=== PATIENT | male | born 1960 | race Caucasian/White ===

== ENCOUNTER 2018-07-30 00:53 | Emergency (ER) | payer BC ==
--- NOTE | 2018-07-30 01:38 | ERPHSYRPT ---
- History of Present Illness Time Seen by Provider: 07/30/18 01:33 Source: patient, family Exam Limitations: no limitations Patient Subjective Stated Complaint: pt spouse reports that as pt was sleeping this evening he began twitching and had trouble breathing. she states that she checked his pulse ox at home and it was 84% at one point during his episode. 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 spouse reports that pt was dx with pneumonia last week and has been taking this week off of his treatments to get rest. spouse reports he finished his course of levaquin today. pt denies pain at this time. Triage Nursing Assessment: pt is aox3, pupils perrl, afebrile, pt appears in no distress upon arrival, resps easy and non labored, intermittent productive cough noted on exam with thick clear secretions noted, redness and areas of scabbing and peeling skin noted to the throat, no drainage or odor noted, radial pulses strong and equal, bilat, cap refill < 3 seconds, no edema appreciated. port noted to the left upper chest, feeding tube in place to the mid abdomen, no redness or drainge noted at this time. 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 Timing/Duration: today Activities at Onset: sleep Severity of Dyspnea-Max: moderate Severity of Dyspnea-Current: moderate Possible Cause: no prior episodes Modifying Factors: Improves With: lying down Allergies/Adverse Reactions: folic acid [From Centrum Silver] Allergy (Verified 10/04/14 10:14) lutein [From Centrum Silver] Allergy (Verified 10/04/14 10:14) lycopene [From Centrum Silver] Allergy (Verified 10/04/14 10:14) multivitamin with minerals [From Centrum Silver] Allergy (Verified 10/04/14 10: 14) rosuvastatin calcium [From Crestor] Allergy (Verified 10/04/14 10:14) Home Medications: ALPRAZolam [Xanax 0.5 mg] 1 tab BID PRN 10/03/14 [History] Ascorbic Acid 500 mg [Vitamin C 500 MG] 1,000 mg PO DAILY 10/03/14 [ History] Citalopram Hydrobromide 20 mg* [ceLEXa 20 MG] 10 mg DAILY 10/03/14 [History] Clonidine HCl 0.1 mg [Catapres 0.1 MG] 0.1 mg PO BID 10/03/14 [History] Diclofenac Sodium/Misoprostol [Arthrotec 50 mg-200 Mcg Tab] 1 each PO TID [History] Mentor-3 Fatty Acids [Fish Oil] 300 mg PO DAILY 10/03/14 [History] Ramipril [Altace] 10 mg PO DAILY 10/03/14 [History] Vitamin B Complex [Super B Complex] 1 each PO DAILY 10/03/14 [History] Hx Tetanus, Diphtheria Vaccination/Date Given: (unk) Hx Influenza Vaccination/Date Given: Yes Hx Pneumococcal Vaccination/Date Given: No Immunizations Up to Date: Yes - Review of Systems Constitutional: No Fever, No Chills Eyes: No Symptoms Ears, Nose, & Throat: No Symptoms Respiratory: Dyspnea, No Cough Cardiac: No Chest Pain, No Edema, No Syncope Abdominal/Gastrointestinal: No Abdominal Pain, No Nausea, No Vomiting, No Diarrhea Genitourinary Symptoms: No Dysuria Musculoskeletal: No Back Pain, No Neck Pain Skin: No Rash Neurological: No Dizziness, No Focal Weakness, No Sensory Changes Psychological: No Symptoms Endocrine: No Symptoms All Other Systems: Reviewed and Negative - Past Medical History Neurological History: No Pertinent History ENT History: Glaucoma, Macular Degeneration Cardiac History: Hypertension Respiratory History: COPD, Sleep Apnea Musculoskeletal History: Arthritis, Osteoarthritis GI Medical History: Diverticulosis, Hernia History: No Pertinent History Psycho-Social History: Anxiety Male Reproductive Disorders: No Pertinent History Other Medical History: sinus issues, (hole in sinus). 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 right lung- middle lobe resected 2018. feeding tube may 2018. power port left chest - Social History Smoking Status: Former smoker How long have you smoked: 30 Drug Use: none Patient Lives Alone: No - Nursing Vital Signs Nursing Vital Signs: Initial Vital Signs Temperature 98.3 F 07/30/18 00:57 Pulse Rate 73 07/30/18 00:57 Respiratory Rate 22 07/30/18 00:57 Blood Pressure 125/52 07/30/18 00:57 O2 Sat by Pulse Oximetry 96 07/30/18 00:57 Pain Scale Pain Intensity 0 - Physical Exam General Appearance: no apparent distress, alert Eye Exam: PERRL/EOMI Ears, Nose, Throat Exam: pharyngeal erythema Neck Exam: normal inspection, supple Respiratory Exam: airway intact, rhonchi Cardiovascular/Chest Exam: normal heart sounds, regular rate/rhythm Abdominal/Gastrointestinal Exam: soft, No tenderness, No distention, No mass Extremity Exam: non-tender, normal range of motion, normal inspection, no calf tenderness, no pedal edema Peripheral Pulses Exam: carotid (R): 2+, carotid (L): 2+, femoral (R): 2+, femoral (L): 2+, dorsalis-pedis (R): 2+, dorsalis-pedis (L): 2+ Neurologic Exam: alert, oriented x 3, cooperative, 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 as tested, sensation nml, No motor deficits Skin Exam: normal color, warm, No dry SpO2 Interpretation: normal SpO2: 96 O2 Delivery: Room Air - Course Nursing assessment & vital signs reviewed: Yes EKG Interpreted by Me: Sinus Rhythm, NORMAL AXIS, LAFB, NORMAL INTERVALS, Non- specific ST Changes - Radiology Exams Chest X-ray Interpretation: Reviewed by me, Infiltrates - CT Exams Chest CT Interpretation: Tele-radiologist Report, No PE Ordered Tests: Active Orders 24 hr Category Date Time Status Clean Catch Urine Specimen STAT Care 07/30/18 01:38 Active EKG-ER Only STAT Care 07/30/18 01:38 Active CHEST 2 VIEWS (PA AND LAT) Stat Exams 07/30/18 01:41 Taken CHEST WITH CONTRAST [CT] Stat Exams 07/30/18 03:06 Taken CBC W DIFF Stat Lab 07/30/18 02:05 Completed CMP Stat Lab 07/30/18 02:05 Completed D-DIMER QUANTITATION Stat Lab 07/30/18 02:05 Completed Lactic Acid Stat Lab 07/30/18 02:06 Completed NT PRO BNP Stat Lab 07/30/18 02:05 Completed TROPONIN Stat Lab 07/30/18 02:05 Completed UA W/RFX UR CULTURE Stat Lab 07/30/18 04:39 Ordered Lab/Rad Data: Laboratory Result Diagrams 07/30/18 02:05 07/30/18 02:05 Laboratory Results 07/30/18 07/30/18 07/30/18 Range/Units 02:06 02:05 02:05 WBC (4.0-10.5) K/mm3 RBC (4.1-5.6) M/mm3 Hgb (12.5-18.0) gm/dl Hct (42-50) % MCV (78-100) fl MCH (26-32) pg MCHC (32-36) g/dl RDW (11.5-14.0) % Plt Count (150-450) K/mm3 MPV (6-9.5) fl Gran % (36.0-66.0) % Eos # (Auto) (0-0.5) Absolute Lymphs (auto) (1.0-4.6) Absolute Monos (auto) (0.0-1.3) Lymphocytes % (24.0-44.0) % Monocytes % (0.0-12.0) % Eosinophils % (0.00-5.0) % Basophils % (0.0-0.4) % Absolute Granulocytes (1.4-6.9) Basophils # (0-0.4) D-Dimer 1035 H* (215-500) ng/mL Sodium (137-145) mmol/L Potassium (3.5-5.1) mmol/L Chloride (98-107) mmol/L Carbon Dioxide (22-30) mmol/L Anion Gap (5-15) MEQ/L BUN (9-20) mg/dL Creatinine (0.66-1.25) mg/dL Estimated GFR ML/MIN Glucose (74-106) mg/dL Lactic Acid 0.9 (0.4-2.0) Calcium (8.4-10.2) mg/dL Total Bilirubin (0.2-1.3) mg/dL AST (17-59) U/L ALT (0-50) U/L Alkaline Phosphatase (38-126) U/L Troponin I (0.000-0.034) ng/mL NT-Pro-B Natriuret Pep (0-900) pg/mL Serum Total Protein (6.3-8.2) g/dL Albumin (3.5-5.0) g/dL Influenza Type A Ag NEGATIVE (NEGATIVE) Influenza Type B Ag NEGATIVE (NEGATIVE) RSV (PCR) NEGATIVE (Negative) Group A Strep Antibody NEGATIVE (NEGATIVE) Slides for Path Review 07/30/18 07/30/18 Range/Units 02:05 02:05 WBC 3.2 L (4.0-10.5) K/mm3 RBC 3.22 L (4.1-5.6) M/mm3 Hgb 10.8 L (12.5-18.0) gm/dl Hct 32.6 L (42-50) % MCV 101.2 H (78-100) fl MCH 33.5 H (26-32) pg MCHC 33.1 (32-36) g/dl RDW 14.0 (11.5-14.0) % Plt Count 382 (150-450) K/mm3 MPV 9.0 (6-9.5) fl Gran % 58.3 (36.0-66.0) % Eos # (Auto) 0.06 (0-0.5) Absolute Lymphs (auto) 0.43 L (1.0-4.6) Absolute Monos (auto) 0.82 (0.0-1.3) Lymphocytes % 13.5 L (24.0-44.0) % Monocytes % 25.7 H (0.0-12.0) % Eosinophils % 1.9 (0.00-5.0) % Basophils % 0.6 (0.0-0.4) % Absolute Granulocytes 1.86 (1.4-6.9) Basophils # 0.02 (0-0.4) D-Dimer (215-500) ng/mL Sodium 132 L (137-145) mmol/L Potassium 4.4 (3.5-5.1) mmol/L Chloride 92 L (98-107) mmol/L Carbon Dioxide 32 H (22-30) mmol/L Anion Gap 12.3 (5-15) MEQ/L BUN 17 (9-20) mg/dL Creatinine 0.52 L (0.66-1.25) mg/dL Estimated GFR > 60.0 ML/MIN Glucose 114 H (74-106) mg/dL Lactic Acid (0.4-2.0) Calcium 9.1 (8.4-10.2) mg/dL Total Bilirubin 0.20 (0.2-1.3) mg/dL AST 25 (17-59) U/L ALT 39 (0-50) U/L Alkaline Phosphatase 73 (38-126) U/L Troponin I < 0.012 (0.000-0.034) ng/mL NT-Pro-B Natriuret Pep 54.5 (0-900) pg/mL Serum Total Protein 7.3 (6.3-8.2) g/dL Albumin 3.3 L (3.5-5.0) g/dL Influenza Type A Ag (NEGATIVE) Influenza Type B Ag (NEGATIVE) RSV (PCR) (Negative) Group A Strep Antibody (NEGATIVE) Slides for Path Review YES - Progress Progress: improved, re-examined Air Movement: good Progress Note: 07/30/18 05:10 discussed results with pt and and that undetected pathology could still be present and that a precise cause has not been determined for the symptoms; the pt and prefer DC with outpt f/u to furhter eval in ER or admission to observe for any furhter episodes, they have the capacity to make this choice and this is reasonable as there were none during obs while pt was sleeping in er tonight. Blood Culture(s) Obtained: No Antibiotics given: No Counseled pt/family regarding: lab results, diagnosis, need for follow-up, rad results - Departure Departure Disposition: Home Clinical Impression: Supra glottic cancer , Sleep apnea in adult, resolved episode of uper airway mucous Condition: Good Critical Care Time: No Referrals: ROMY LOPEZ MD [Primary Care Provider] - Additional Instructions: followup with your Drs as planned and return if further episodes or concerns occur.
[2018-07-30 02:06] LABS: BASOPHIL % 0.6 % (0.0-0.4); Basophil (Absolute #) 0.02 (0-0.4); Eosinophil % 1.9 % (0.00-5.0); Eosinophil (Absolute #) 0.06 (0-0.5); Granulocyte Absolute (ANC) 1.86 (1.4-6.9); Granulocytes % 58.3 % (36.0-66.0); Hematocrit 32.6 % (42-50); Hemoglobin 10.8 gm/dl (12.5-18.0); Lymphocyte (Absolute #) 0.43 (1.0-4.6); Lymphocytes % 13.5 % (24.0-44.0); Mean Cell Volume 101.2 fl (78-100); Mean Corpuscular Hemoglobin 33.5 pg (26-32); Mean Corpuscular Hgb Concent. 33.1 g/dl (32-36); Monocyte (Absolute #) 0.82 (0.0-1.3); Monocytes % 25.7 % (0.0-12.0); Platelet Count 382 K/mm3 (150-450); Red Blood Count 3.22 M/mm3 (4.1-5.6); White Blood Count 3.2 K/mm3 (4.0-10.5)
[2018-07-30 02:35] LABS: ALBUMIN 3.3 g/dL (3.5-5.0); ALKALINE PHOSPHATASE 73 U/L (38-126); ANION GAP 12.3 MEQ/L (5-15); BLOOD UREA NITROGEN 17 mg/dL (9-20); CHLORIDE 92 mmol/L (98-107); Calcium 9.1 mg/dL (8.4-10.2); Carbon Dioxide 32 mmol/L (22-30); Creatinine 1 0.52 mg/dL (0.66-1.25); Glucose 114 mg/dL (74-106); NT PRO BNP 54.5 pg/mL (0-900); Potassium 4.4 mmol/L (3.5-5.1); SGOT/AST 25 U/L (17-59); SGPT/ALT 39 U/L (0-50); SODIUM 132 mmol/L (137-145); TROPONIN < 0.012 ng/mL (0.000-0.034); Total Protein 7.3 g/dL (6.3-8.2)
[2018-07-30 03:04] LABS: Group A Strep NEGATIVE (NEGATIVE); INFLUENZA A NEGATIVE (NEGATIVE)
[2018-07-30 03:05] LABS: INFLUENZA B NEGATIVE (NEGATIVE); RESPIRATORY SYNCTIAL VIRUS NEGATIVE (Negative)
[2018-07-30 03:41] LABS: Slide Review 1 YES
[2018-07-30 05:17] LABS: Appearance CLEAR (CLEAR); Bilirubin NEGATIVE (NEGATIVE); Blood NEGATIVE Ery/ul (0-5); Glucose NEGATIVE (NEGATIVE); Ketones NEGATIVE (NEGATIVE); Leukocyte Esterase NEGATIVE (NEGATIVE); Nitrite NEGATIVE (NEGATIVE); Protein,Urine Dip NEGATIVE (Negative); Specific Gravity 1.038 (1.005-1.025); Urobilinogen NEGATIVE mg/dL (0-1)
[2018-07-30 05:34] VITALS: BP 106/68; PULSE 78; O2SAT 95
--- NOTE | 2018-07-30 10:00 | XRAY ---
Indication: Short of breath. Decreased oxygenation. Chemotherapy for carcinoma. Comparison: None PA/lateral chest hyperinflated with right midlung postsurgical changes and left Port-A-Cath. No focal infiltrate, consolidation, or large effusion. Heart and mediastinal structures within normal limits. Bony thorax intact with mild osteopenia and degenerative changes. Impression: Nonacute chest with chronic features.
--- NOTE | 2018-07-30 10:00 | XRAY ---
Indication: Short of breath. Decrease oxygenation. Elevated d-dimer. Carcinoma. Multiple contiguous axial images obtained through the chest using 80 cc Isovue 300 contrast and PE protocol. Comparison: CT chest without contrast February 22, 2018. There is satisfactory opacification of the pulmonary arteries. No filling defect or pulmonary embolus. Left and right main pulmonary arteries are prominent up to 2.9 cm in diameter suggestive of pulmonary hypertension. Heart is not enlarged with new left Port-A-Cath. Aorta remains mildly arteriosclerotic without aneurysm/dissection. Stable subcarinal calcified node. No pathologic mediastinal/hilar lymphadenopathy. Examination of the lung parenchyma demonstrates interval surgical resection of right midlung mass with postsurgical scarring in right lung volume loss. No new pulmonary mass, infiltrate, or effusion. Bony thorax intact again with mild generative changes throughout the spine. Limited upper abdomen again demonstrates tiny calcified splenic granulomas. Impression: 1. Negative pulmonary embolus. 2. Right lung postsurgical changes. 3. Prominent main pulmonary arteries suggestive of pulmonary hypertension and evidence for old granulomatous disease. 4. Remaining CT chest with contrast exam is negative. Comment: Preliminary interpretation was made by [facility]. No discrepancy. CTDI 21.75
== END 2018-07-30 05:34 | disposition home or self-care (01) ==
LOC: ED 00:53
DX: I10 Essential (primary) hypertension (principal); J44.9 Chronic obstructive pulmonary disease, unspecified; F41.9 Anxiety disorder, unspecified; M19.90 Unspecified osteoarthritis, unspecified site
CPT/HCPCS: 36415; 71046; 71260; 80053; 81001; 83605; 83880; 84484; 85025; 85379; 87631; 87651; 93005; 99284; J1642

== ENCOUNTER 2018-12-01 05:55 | Emergency (ER) | payer BC ==
--- NOTE | 2018-12-01 06:45 | ERPHSYRPT ---
- History of Present Illness Source: patient, family Patient Subjective Stated Complaint: pt states he tripped and fell outside his home. states he thinks he hit a concrete block above his rt eye. denies dizziness before or after fall. Triage Nursing Assessment: pt alert and oriented, answers questions approp. pt ambulatory with steady gait noted. respirations nonlabored. occasional cough noted. rt eye swollen with purple bruising noted to eyelid. pupils equal and reactive. 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 Occurred: just prior to arrival Reason for Fall: unknown Injuries/Pain Location: head, face Loss of Consciousness: brief (seconds) Quality: aching Severity of Pain-Max: mild Severity of Pain-Current: mild Associated Symptoms (Fall): confusion (at the time. no confusion now. 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 pt unsure how he fell. while on chemoradiation, he had several falling spells. pt went out to smoke this am. when spouse noticed pt not back to bed, she went out to pts work garage she saw obvious swelling to right eye and forehead. pt unsure what happened. pt denies extremity injury, denies cp and denies abd pain. pt has a feeding tube in place. he has had decrease in his tube feeds since he is sara pos somewhat. spouse does not think he is eating or drinking enough. pt has h/o sleep apnea but is noncompliant with his machine. tetanus status unknown. pt not on anticoag tx. (VANESSA VALERA) Allergies/Adverse Reactions: folic acid [From Centrum Silver] Allergy (Verified 12/01/18 06:23) Hives lutein [From Centrum Silver] Allergy (Verified 12/01/18 06:23) lycopene [From Centrum Silver] Allergy (Verified 12/01/18 06:23) multivitamin with minerals [From Centrum Silver] Allergy (Verified 12/01/18 06: 23) rosuvastatin calcium [From Crestor] Allergy (Verified 12/01/18 06:23) Home Medications: ALPRAZolam [Xanax 0.5 mg] 1 tab PO BID PRN 10/03/14 [History] Citalopram Hydrobromide 20 mg* [ceLEXa 20 MG] 10 mg DAILY 10/03/14 [History] Diclofenac Sodium/Misoprostol [Arthrotec 50 mg-200 Mcg Tab] 1 each PO BID [History] Vitamin B Complex [Super B Complex] 1 each PO DAILY 10/03/14 [History] Albuterol 2.5 mg/3 ml Neb [Proventil 2.5 mg/3 ml Neb] 2.5 mg IH Q4HPRN PRN 12/01/18 [History] Atorvastatin Calcium [Lipitor] 10 mg PO HS 12/01/18 [History] Methimazole [Northyx] 10 mg PO DAILY 12/01/18 [History] Thiamine HCl 100 mg [Vitamin B-1 100 mg] 100 mg PO DAILY 12/01/18 [History ] - Review of Systems Constitutional: No Symptoms Eyes: No Symptoms, Eye Pain (right eye) Ears, Nose, & Throat: No Symptoms Respiratory: No Symptoms Cardiac: No Symptoms Abdominal/Gastrointestinal: No Symptoms Genitourinary Symptoms: No Symptoms Musculoskeletal: No Symptoms Skin: Other (laceration above right eye) Neurological: No Symptoms Psychological: No Symptoms Endocrine: No Symptoms Hematologic/Lymphatic: No Symptoms Immunological/Allergic: No Symptoms All Other Systems: Reviewed and Negative <VANESSA VALERA - Last Filed: 12/01/18 06:38> - Past Medical History Neurological History: No Pertinent History ENT History: Glaucoma, Macular Degeneration Cardiac History: Hypertension Respiratory History: COPD, Sleep Apnea Musculoskeletal History: Arthritis, Osteoarthritis GI Medical History: Diverticulosis, Hernia History: No Pertinent History Psycho-Social History: Anxiety Male Reproductive Disorders: No Pertinent History Other Medical History: sinus issues, (hole in sinus). 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 . - Past Surgical History Past Surgical History: Yes Neuro Surgical History: No Pertinent History Cardiac: No Pertinent History Respiratory: No Pertinent History, Lobectomy Gastrointestinal: Hernia Repair, Other Genitourinary: No Pertinent History Musculoskeletal: No Pertinent History Male Surgical History: Vasectomy Other Surgical History: leg stitched after cut with circular saw. right lung- middle lobe resected 2018. feeding tube may 2018. power port left chest. hx of head injury as teenager - hospitalized for 2 weeks - Social History Smoking Status: Current every day smoker How long have you smoked: 30 Exposure to second hand smoke: No Drug Use: none Patient Lives Alone: No <VANESSA VALERA - Last Filed: 12/01/18 06:38> - Pauline Coma Score Best Eye Response (Ambrose): (3) open to voice Best Verbal Response (Pauline): (5) oriented Best Motor Response (Pauline): (6) obeys commands Pauline Total: 14 - Physical Exam General Appearance: no apparent distress, alert, obese Head Injury: ecchymosis, swelling (right periorbital hematoma primarily), tenderness Eye Exam: PERRL/EOMI ENT Exam: airway nml, nml ext.inspection Neck Exam: supple, trachea midline, full range of motion, normal alignment, normal inspection, stiff neck (mild) Cardiovascular Exam: normal heart sounds, regular rate/rhythm Gastrointestinal Exam: soft, normal bowel sounds, No tenderness Rectal Exam: not done Back Exam: normal inspection, normal range of motion, No CVA tenderness, No vertebral tenderness Extremity Exam: normal inspection, normal range of motion, pelvis stable Neurologic Exam: alert, oriented x 3, cooperative, 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, normal mood/affect Skin Exam: ecchymosis (right periorbital upper eye and eyelid), laceration (2cm above right eye) SpO2: 96 O2 Delivery: Room Air <VANESSA VALERA - Last Filed: 12/01/18 06:38> - Nursing Vital Signs Nursing Vital Signs: Initial Vital Signs Temperature 98.6 F 12/01/18 06:05 Pulse Rate 63 12/01/18 06:05 Respiratory Rate 18 12/01/18 06:05 Blood Pressure 153/73 12/01/18 06:05 O2 Sat by Pulse Oximetry 96 12/01/18 06:05 Pain Scale Pain Intensity 3 - Course EKG Interpreted by Me: RATE (72), NORMAL AXIS, NORMAL INTERVALS, NORMAL QRS, Non -specific ST Changes (V5, V6) - CT Exams Head CT Interpretation: Negative, Other (limited study with motion) Maxillofacial Bones CT Interpretation: Subluxation (both maxillary slight anterior subluxation) Cervical Spine CT Interpretation: Negative <SEAN RENDON - Last Filed: 12/01/18 09:05> Ordered Tests: Active Orders 24 hr Category Date Time Status EKG-ER Only STAT Care 12/01/18 08:32 Active IV Insertion STAT Care 12/01/18 06:55 Active Wound Care STAT Care 12/01/18 08:04 Active CERVICAL SPINE WO CONTRAST [CT] Stat Exams 12/01/18 07:29 Taken FACIAL BONES WO CONTRAST [CT] Stat Exams 12/01/18 06:57 Taken HEAD WITHOUT CONTRAST [CT] Stat Exams 12/01/18 06:57 Taken CBC W DIFF Stat Lab 12/01/18 06:55 Completed CMP Stat Lab 12/01/18 06:55 Completed Medication Summary Discontinued Medications Generic Name Dose Route Start Last Admin Trade Name Freq PRN Reason Stop Dose Admin Diphtheria/Tetanus/Acell Pertussis 0.5 ml 12/01/18 08:05 12/01/18 08:27 Adacel Vial IM 12/01/18 08:06 0.5 ml .ONCE ONE Administration Diphtheria/Tetanus/Acell Pertussis Confirm 12/01/18 08:26 Adacel Vial Administered 12/01/18 08:27 Dose 0.5 ml IM .STK-MED ONE Sodium Chloride 1,000 mls @ 999 mls/hr 12/01/18 06:55 12/01/18 08:37 Sodium Chloride 0.9% 1000 Ml IV 12/01/18 07:55 Infused .Q1H1M STA Infusion Sodium Chloride Confirm 12/01/18 07:04 Sodium Chloride 0.9% 1000 Ml Administered 12/01/18 07:05 Dose 1,000 mls @ ud .ROUTE .STK-MED ONE Lab/Rad Data: Laboratory Result Diagrams 12/01/18 06:55 12/01/18 06:55 Laboratory Results 12/01/18 12/01/18 Range/Units 06:55 06:55 WBC 9.6 (4.0-10.5) K/mm3 RBC 3.70 L (4.1-5.6) M/mm3 Hgb 13.1 (12.5-18.0) gm/dl Hct 37.5 L (42-50) % MCV 101.4 H (78-100) fl MCH 35.4 H (26-32) pg MCHC 34.9 (32-36) g/dl RDW 12.2 (11.5-14.0) % Plt Count 336 (150-450) K/mm3 MPV 9.0 (6-9.5) fl Gran % 74.1 H (36.0-66.0) % Eos # (Auto) 0.42 (0-0.5) Absolute Lymphs (auto) 0.76 L (1.0-4.6) Absolute Monos (auto) 1.28 (0.0-1.3) Lymphocytes % 7.9 L (24.0-44.0) % Monocytes % 13.3 H (0.0-12.0) % Eosinophils % 4.4 (0.00-5.0) % Basophils % 0.3 (0.0-0.4) % Absolute Granulocytes 7.12 H (1.4-6.9) Basophils # 0.03 (0-0.4) Sodium 127 L (137-145) mmol/L Potassium 3.8 (3.5-5.1) mmol/L Chloride 88 L (98-107) mmol/L Carbon Dioxide 31 H (22-30) mmol/L Anion Gap 11.7 (5-15) MEQ/L BUN 12 (9-20) mg/dL Creatinine 0.40 L (0.66-1.25) mg/dL Estimated GFR > 60.0 ML/MIN Glucose 101 (74-106) mg/dL Calcium 9.4 (8.4-10.2) mg/dL Total Bilirubin 0.30 (0.2-1.3) mg/dL AST 36 (17-59) U/L ALT 15 (0-50) U/L Alkaline Phosphatase 70 (38-126) U/L Serum Total Protein 7.4 (6.3-8.2) g/dL Albumin 4.0 (3.5-5.0) g/dL <VANESSA VALERA - Last Filed: 12/01/18 06:38> - Progress Progress: improved, re-examined (Patient awake and alert - NAD; opens and closes mandible without pain (palpation of TMJ while patient performing movement ). Patient advises jaw opens and closes normallly; teet mesh and feel normal,) <SEAN RENDON - Last Filed: 12/01/18 09:05> - Progress Progress Note: 12/01/18 06:51 care of pt transferred to dr. rendon. have discussed pt hx, condition. i have d/ w him pending tests and xrays to follow up on. he accepts pt in transfer. ( VANESSA VALERA) <VANESSA VALERA - Last Filed: 12/01/18 06:38> - Departure Departure Disposition: Home Critical Care Time: No <SEAN RENDON - Last Filed: 12/01/18 09:05> - Departure Clinical Impression: Fall, Contusion, eye, right Syncope Qualifiers: Syncope type: unspecified Qualified Code(s): R55 - Syncope and collapse Condition: Stable Referrals: ROMY LOPEZ MD [Primary Care Provider] - Additional Instructions: Rest today; cold to area of swelling Right eye; keep well hydrated. Resume usual mediations and follow existing treatment plans. Watch for signs of infection.
[2018-12-01] MEDS ORDERED: Sodium Chloride 0.9% 1000 ML 1,000 ML ONE (07:04)
[2018-12-01 07:17] LABS: BASOPHIL % 0.3 % (0.0-0.4); Basophil (Absolute #) 0.03 (0-0.4); Eosinophil % 4.4 % (0.00-5.0); Eosinophil (Absolute #) 0.42 (0-0.5); Granulocyte Absolute (ANC) 7.12 (1.4-6.9); Granulocytes % 74.1 % (36.0-66.0); Hematocrit 37.5 % (42-50); Hemoglobin 13.1 gm/dl (12.5-18.0); Lymphocyte (Absolute #) 0.76 (1.0-4.6); Lymphocytes % 7.9 % (24.0-44.0); Mean Cell Volume 101.4 fl (78-100); Mean Corpuscular Hemoglobin 35.4 pg (26-32); Mean Corpuscular Hgb Concent. 34.9 g/dl (32-36); Monocyte (Absolute #) 1.28 (0.0-1.3); Monocytes % 13.3 % (0.0-12.0); Platelet Count 336 K/mm3 (150-450); Red Cell Distribution Width 12.2 % (11.5-14.0); White Blood Count 9.6 K/mm3 (4.0-10.5)
[2018-12-01] MEDS: Sodium Chloride 0.9% 1000 ML 1,000 ML IV STA (07:36)
[2018-12-01 07:38] LABS: ALKALINE PHOSPHATASE 70 U/L (38-126); ANION GAP 11.7 MEQ/L (5-15); BLOOD UREA NITROGEN 12 mg/dL (9-20); CHLORIDE 88 mmol/L (98-107); Calcium 9.4 mg/dL (8.4-10.2); Carbon Dioxide 31 mmol/L (22-30); Glucose 101 mg/dL (74-106); Potassium 3.8 mmol/L (3.5-5.1); SGOT/AST 36 U/L (17-59); SGPT/ALT 15 U/L (0-50); SODIUM 127 mmol/L (137-145); Total Protein 7.4 g/dL (6.3-8.2)
[2018-12-01] MEDS ORDERED: Adacel Vial IM ONE (08:26)
[2018-12-01] MEDS: Adacel Vial IM ONE (08:27)
[2018-12-01 08:59] VITALS: BP 131/95; PULSE 66; O2SAT 96
--- NOTE | 2018-12-01 09:06 | XRAY ---
Indication: Right periorbital bruising and swelling following fall. Multiple contiguous axial images obtained through the head without contrast. Comparison: None Study is degraded by motion artifact even with repeat CT. Age-appropriate global atrophy and mild periventricular degenerative micro-ischemia bilaterally. No gross acute intracranial hemorrhage, abnormal extra axial fluid collection, or mass effect. Fourth ventricle is midline without hydrocephalus. Bony calvarium grossly intact with old left nasal bone fracture deformity. Large right periorbital soft tissue swelling/hematoma and a tiny posterior midline scalp soft tissue swelling/hematoma. Minimal mucosal thickening left maxillary sinus. Remaining visualized paranasal sinuses and mastoid air cells are clear. Impression: 1. Motion artifact. 2. No gross acute intracranial abnormalities or acute fracture. 3. Right periorbital and posterior scalp soft tissue swelling/hematoma. 4. Minimal left maxillary sinus disease. CT DI 51.47
--- NOTE | 2018-12-01 09:10 | XRAY ---
Indication: Right periorbital bruising and swelling following fall. Multiple contiguous axial images obtained through the facial bones. Sagittal and coronal reformatted images obtained. Comparison: None Large right periorbital soft tissue swelling/hematoma. Old left nasal bone fracture deformity. No acute fracture, suspicious bony lesions, or radiopaque foreign body. Orbits including roof, jiménez, and floors intact. Left maxillary sinus demonstrates mild mucosal thickening. Remaining visualized paranasal sinuses and nasal passages are clear. Minimal nasal septal deviation to the left. Patient is nearly edentulous. There is mild bilateral TMJ anterior subluxation. Remaining visualized noncontrasted soft tissues unremarkable. CT head and CT cervical spine reported separately. Impression: 1. Large right periorbital soft tissue swelling/hematoma. No acute fracture. 2. Bilateral TMJ anterior subluxation possibly related to patient being nearly edentulous. 3. Old left nasal bone fracture and mild left maxillary sinus disease. CT DI 59.47
--- NOTE | 2018-12-01 09:33 | XRAY ---
Indication: Right periorbital bruising and swelling following fall. Multiple contiguous axial images obtained through the cervical spine. Sagittal and coronal reformatted images obtained. Comparison: None Axial images negative for acute fracture, suspicious bony lesions, or spinal canal stenosis. Minimal C6-C7 degenerative endplate spurring and mild multilevel bilateral degenerative facet hypertrophy. Additional mild atlantoaxial degenerative arthropathy. Sagittal and coronal reformatted images demonstrates normal alignment with minimal C6-C7 disc space narrowing. No acute compression fracture, subluxation, or jumped facet. Normal appearing craniocervical junction. Visualized noncontrasted soft tissues demonstrates moderate scattered carotid calcifications bilaterally. CT head reported separately. Impression: 1. Negative acute fracture/subluxation. 2. Multilevel degenerative changes and scattered carotid calcifications. CT DI 52.74
== END 2018-12-01 09:17 | disposition home or self-care (01) ==
LOC: ED 05:55
DX: S00.11XA Contusion of right eyelid and periocular area, initial encounter (principal); W01.198A Fall on same level from slipping, tripping and stumbling with subsequent striking against other object, initial encounter; R55 Syncope and collapse
CPT/HCPCS: 36000; 36415; 70450; 70486; 72125; 80053; 85025; 90471; 90715; 93005; 96360; 99284; J1642

== ENCOUNTER 2020-04-23 23:17 | Emergency (ER) | payer BC ==
[2020-04-23] MEDS ORDERED: XYLOCAINE 1%/Epi 1:100000 MDV 20 ML ONE (23:44)
[2020-04-23] MEDS ORDERED: Adacel Vial IM ONE (23:54)
--- NOTE | 2020-04-24 | ERPHSYRPT ---
- History of Present Illness Time Seen by Provider: 04/23/20 23:33 Source: patient Exam Limitations: no limitations Patient Subjective Stated Complaint: pt fell and hit his head on the coffee table Triage Nursing Assessment: pt fell while walking and hit the back of his head on the coffee table. Pt has 4 cm incision to the back of his head, bleeding mod amt of blood. Pt had loc for a brief period of time. Pt denies being on any blood thinners. Pt has a trach. 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 Patient reports he missed a step while going to the bathroom and fell backward, hit his head against a coffee table edge. Had a brief few second loss of consciousness with no confusion upon waking up. Is able to get up at his routine. He is complaining of moderate sharp headache in the occipital area without any blurry vision, numbness tingling or focal weakness. Occurred: just prior to arrival Severity: moderate Head Injury Location: occipital Method of Injury: fell Loss of Consciousness: brief (seconds) Associated Symptoms: headaches, No nausea, No vomiting, No heartburn, No chest pain, No seizure, No weakness Allergies/Adverse Reactions: folic acid [From Centrum Silver] Allergy (Verified 04/23/20 23:44) Hives lutein [From Centrum Silver] Allergy (Verified 04/23/20 23:44) lycopene [From Centrum Silver] Allergy (Verified 04/23/20 23:44) multivitamin with minerals [From Centrum Silver] Allergy (Verified 04/23/20 23:44) rosuvastatin calcium [From Crestor] Allergy (Verified 04/23/20 23:44) Home Medications: ALPRAZolam [Xanax 0.5 mg] 1 tab PO BID PRN 10/03/14 [History] Citalopram Hydrobromide 20 mg* [ceLEXa 20 MG] 10 mg PO DAILY 10/03/14 [History] Diclofenac Sodium/Misoprostol [Arthrotec 50 mg-200 Mcg Tab] 1 each PO BID 10/03/14 [History] Vitamin B Complex [Super B Complex] 1 each PO DAILY 10/03/14 [History] Albuterol 2.5 mg/3 ml Neb [Proventil 2.5 mg/3 ml Neb] 2.5 mg IH Q4HPRN PRN 12/01/18 [History] Atorvastatin Calcium [Lipitor] 10 mg PO HS 12/01/18 [History] Methimazole [Northyx] 10 mg PO DAILY 12/01/18 [History] Thiamine HCl 100 mg [Vitamin B-1 100 mg] 100 mg PO DAILY 12/01/18 [History] Hx Tetanus, Diphtheria Vaccination/Date Given: Yes Hx Influenza Vaccination/Date Given: Yes Hx Pneumococcal Vaccination/Date Given: Yes Immunizations Up to Date: Yes Travel Risk - International Travel Have you traveled outside of the country in past 3 weeks: No - Coronavirus Screening Are you exhibiting any of the following symptoms?: No Close contact with a COVID-19 positive Pt in past 14-21 Days: No - Review of Systems Constitutional: No Symptoms Eyes: No Symptoms Ears, Nose, & Throat: No Symptoms Respiratory: No Symptoms Cardiac: No Symptoms Abdominal/Gastrointestinal: No Symptoms Genitourinary Symptoms: No Symptoms Psychological: No Symptoms Endocrine: No Symptoms Hematologic/Lymphatic: No Symptoms Immunological/Allergic: No Symptoms - Past Medical History Pertinent Past Medical History: Yes Neurological History: No Pertinent History ENT History: Glaucoma, Macular Degeneration Cardiac History: Hypertension Respiratory History: COPD, Sleep Apnea Endocrine Medical History: No Pertinent History Musculoskeletal History: Arthritis, Osteoarthritis GI Medical History: Diverticulosis, Hernia History: No Pertinent History Psycho-Social History: Anxiety Male Reproductive Disorders: No Pertinent History Other Medical History: sinus issues, (hole in sinus). 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 . - Past Surgical History Past Surgical History: Yes Neuro Surgical History: No Pertinent History Cardiac: No Pertinent History Respiratory: No Pertinent History, Lobectomy Gastrointestinal: Hernia Repair, Other Genitourinary: No Pertinent History Musculoskeletal: No Pertinent History Male Surgical History: Vasectomy Other Surgical History: leg stitched after cut with circular saw. right lung- middle lobe resected 2018. feeding tube may 2018. power port left chest. hx of head injury as teenager - hospitalized for 2 weeks - Social History Smoking Status: Former smoker How long have you smoked: 30 Exposure to second hand smoke: No Drug Use: marijuana Patient Lives Alone: No - Nursing Vital Signs Nursing Vital Signs: Initial Vital Signs Temperature 98.6 F 04/23/20 23:29 Pulse Rate 77 04/23/20 23:29 Respiratory Rate 20 04/23/20 23:29 Blood Pressure 168/130 04/23/20 23:29 O2 Sat by Pulse Oximetry 98 04/23/20 23:29 Pain Scale Pain Intensity 0 - [place] Coma Score Best Eye Response (Pauline): (4) open spontaneously Best Verbal Response (Pauline): (5) oriented Best Motor Response (Pauline): (6) obeys commands Pauline Total: 15 - Physical Exam General Appearance: no apparent distress, alert Head Injury: active bleeding (Right occipital area 5 cm laceration with oozing), lacerations, swelling, tenderness Eye Exam: bilateral eye: normal inspection, PERRL, EOMI ENT Exam: airway nml, evidence of ENT injury, nml ext.inspection, other (Tracheostomy tube well working) Neck Exam: supple, normal alignment, normal inspection, No focal neuro deficit, No paraspinous muscle tender, No pain on movement of neck, No stiff neck, No tenderness, No tender lateral, No mid-line tenderness, No meningismus Cardiovascular/Respiratory Exam: chest non-tender, normal breath sounds, regular rate/rhythm Gastrointestinal/Abdominal Exam: soft, non tender Back Exam: normal inspection, normal range of motion Extremity Exam: non-tender, normal range of motion Mental Status Exam: alert, oriented x 3, 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 Exam: normal hearing, PERRL, No normal speech Coordination/Gait Exam: normal finger to nose, normal cerebellar function Motor/Sensory Exam: no motor deficit, no sensory deficit, no pronator drift DTR Exam: bicep (R): 2+, bicep (L): 2+, knee (R): 2+, knee (L): 2+ Skin Exam: normal color SpO2 Interpretation: normal SpO2: 98 O2 Delivery: Room Air Procedures - Laceration/Wound Repair Occipital Wound Location: Right, head Wound Length (cm): 5 Wound's Depth, Shape: into muscle, linear Wound Explored: clean Irrigated: Yes Hibiclens Prep: Yes Anesthesia: 1% lidocaine w/ Epi Volume Anesthetic (ccs): 4 Wound Repaired With: Dalton Number of Sutures: 8 - Course Nursing assessment & vital signs reviewed: Yes Ordered Tests: Active Orders 24 hr Category Date Time Status CERVICAL SPINE WO CONTRAST [CT] Stat Exams 04/23/20 23:54 Taken HEAD WITHOUT CONTRAST [CT] Stat Exams 04/24/20 00:25 Taken Medication Summary Discontinued Medications Generic Name Dose Route Start Last Admin Trade Name Aleksander PRN Reason Stop Dose Admin Diphtheria/Tetanus/Acell Pertussis 0.5 ml 04/23/20 23:54 04/24/20 01:01 Adacel Vial IM 04/23/20 23:55 Not Given .ONCE ONE Lidocaine/Epinephrine Confirm 04/23/20 23:44 Xylocaine 1%/Epi [id number] Mdv 20 Ml Administered 04/23/20 23:45 Dose 1 ml .ROUTE .[employer] ONE - Progress Progress: improved Progress Note: 59 years old is evaluated in the ER for follow-up with posterior occipital parietal area laceration. Pressure is applied and then lidocaine with epi is i njected, hemostasis is secure. Laceration is closed with sonia. I have obtained CT head and neck which are negative for any acute osseous abnormality/injury or any internal injury. Patient is at his baseline. It was a clear mechanical fall. Do not think he needs any other work-up and is stable for discharge with outpatient follow-up. 04/24/20 01:10 Counseled pt/family regarding: diagnosis, need for follow-up - Departure Departure Disposition: Home Clinical Impression: Concussion Qualifiers: Encounter type: initial encounter Loss of consciousness presence/duration: with LOC of 30 min or less Qualified Code(s): S06.0X1A - Concussion with loss of consciousness of 30 minutes or less, initial encounter Occipital scalp laceration Qualifiers: Encounter type: initial encounter Qualified Code(s): S01.01XA - Laceration without foreign body of scalp, initial encounter Fall Qualifiers: Encounter type: initial encounter Qualified Code(s): W19.XXXA - Unspecified fall, initial encounter Condition: Stable Critical Care Time: No Referrals: ROMY LOPEZ MD [Primary Care Provider] - (1-2 days for reevaluation) Instructions: Concussion, Adult (DC), Closed Head Injury (DC) Additional Instructions: Stay with a responsible person for next 48 hours with frequent neuro checks. Return to ER for altered level of consciousness/confusion/focal numbness tingling weakness or visual/language symptoms. Keep the laceration area clean. Apply ice. Tylenol as needed for headache. Follow-up outpatient for reevaluation with primary care and staple removal in 7-10 days.
[2020-04-24 01:04] VITALS: BP 139/72; PULSE 67
[2020-04-24 01:11] VITALS: O2SAT 98
--- NOTE | 2020-04-24 08:39 | XRAY ---
Indication: Head injury/laceration following fall. Multiple contiguous axial images obtained through the head without contrast. Comparison: December 01, 2018. There remains age-appropriate global atrophy and mild periventricular degenerative micro-ischemia bilaterally. No acute intracranial hemorrhage, abnormal extra-axial fluid collection, or mass effect. Fourth ventricle is midline without hydrocephalus. Bony calvarium intact. New right posterior parietal scalp hematoma with overlying cutaneous sonia. Right maxillary sinus demonstrates new fluid leveling. Mastoid air cells remain clear. Impression: 1. New right parietal scalp hematoma/laceration. No underlying fracture or acute intracranial abnormalities. 2. Stable atrophy and degenerative micro-ischemia within normal limits for patient's age. 3. New right maxillary sinus fluid leveling either posttraumatic versus sinusitis. Comment: Preliminary interpretation was made by [facility]. No critical discrepancy.
--- NOTE | 2020-04-24 08:45 | XRAY ---
Indication: Head injury/laceration following fall. History throat cancer with tracheostomy. Multiple contiguous axial images obtained through the cervical spine. Sagittal and coronal reformatted images obtained. Comparison: December 01, 2018. Several images are degraded by motion artifact even with repeat CT. Axial images negative for gross acute fracture, suspicious bony lesions, or spinal canal stenosis. There remains minimal C6-C7 degenerative endplate spurring, mild multilevel bilateral degenerative facet hypertrophy, and atlantoaxial degenerative arthropathy. Sagittal and coronal reformatted images demonstrates normal alignment with stable C6-C7 disc space narrowing. No acute compression fracture, subluxation, or jumped facet. Normal appearing craniocervical junction. Visualized noncontrasted soft tissues again demonstrates scattered bilateral carotid calcifications and infraglottic soft tissue mass narrowing the oropharynx. New incompletely visualized tracheostomy cannula. Impression: 1. Motion artifact. 2. Grossly negative for fracture/subluxation. 3. Stable multilevel degenerative changes, bilateral carotid calcifications, and known infraglottic soft tissue malignancy. Comment: Preliminary interpretation was made by [facility]. No critical discrepancy.
== END 2020-04-24 01:20 | disposition home or self-care (01) ==
LOC: ED 23:17
DX: S06.0X1A Concussion with loss of consciousness of 30 minutes or less, initial encounter (principal); S01.01XA Laceration without foreign body of scalp, initial encounter; W01.190A Fall on same level from slipping, tripping and stumbling with subsequent striking against furniture, initial encounter; Z79.899 Other long term (current) drug therapy; I10 Essential (primary) hypertension
CPT/HCPCS: 12013; 70450; 72125; 99283

== ENCOUNTER 2020-12-11 18:12 | Emergency (ER) | payer BC ==
[2020-12-11 19:42] LABS: Absolute Neutrophil Ct (ANC) 3.34 (1.4-6.9); BASOPHIL % 1.3 % (0.0-0.4); Basophil (Absolute #) 0.08 (0-0.4); Eosinophil % 8.7 % (0.00-5.0); Eosinophil (Absolute #) 0.52 (0-0.5); Hematocrit 38.9 % (42-50); Hemoglobin 13.4 gm/dl (12.5-18.0); Lymphocytes % 18.3 % (24.0-44.0); Mean Cell Volume 103.2 fl (78-100); Mean Corpuscular Hemoglobin 35.5 pg (26-32); Mean Corpuscular Hgb Concent. 34.4 g/dl (32-36); Monocyte (Absolute #) 0.96 (0.0-1.3); Neutrophil % 55.7 % (36.0-66.0); Platelet Count 278 K/mm3 (150-450); Red Blood Count 3.77 M/mm3 (4.1-5.6); Red Cell Distribution Width 14.6 % (11.5-14.0)
--- NOTE | 2020-12-11 19:53 | ERPHSYRPT ---
- History of Present Illness Time Seen by Provider: 12/11/20 18:30 Source: patient Exam Limitations: no limitations Patient Subjective Stated Complaint: pt here for sleeping more and not following tasks all the way through. she states that has been going on for 2-3 months, pt left alone during day. Triage Nursing Assessment: pt arrived per wc, alert, resp easy, face mask in place, has trach in place due to radiation, pt is alert, and answers questions correctly. he does state he feels off and times , follows commands well Physician History: Patient is a 60-year-old male with a history of head neck cancer presents to our ED with complaints of a 2 to 3-month history of progressive drowsiness and not following task completion. Patient has a history of hyponatremia and family believes patient may be experiencing another bout of hyponatremia. Patient symptoms are progressive. Symptoms are moderate in intensity. No specific worsening improving factors. No trauma no fever. No nausea or vomiting. Severity: moderate Modifying Factors: Improves With: nothing Associated Symptoms: denies symptoms Allergies/Adverse Reactions: folic acid [From Centrum Silver] Allergy (Verified 04/23/20 23:44) Hives lutein [From Centrum Silver] Allergy (Verified 04/23/20 23:44) lycopene [From Centrum Silver] Allergy (Verified 04/23/20 23:44) multivitamin with minerals [From Centrum Silver] Allergy (Verified 04/23/20 23:44) rosuvastatin calcium [From Crestor] Allergy (Verified 04/23/20 23:44) Home Medications: ALPRAZolam [Xanax 0.5 mg] 1 tab PO BID PRN 10/03/14 [History] Vitamin B Complex [Super B Complex] 1 each PO DAILY 10/03/14 [History] Albuterol 2.5 mg/3 ml Neb [Proventil 2.5 mg/3 ml Neb] 2.5 mg IH Q4HPRN PRN 12/01/18 [History] Atorvastatin Calcium [Lipitor] 10 mg PO HS 12/01/18 [History] Methimazole [Northyx] 10 mg PO DAILY 12/01/18 [History] Thiamine HCl 100 mg [Vitamin B-1 100 mg] 100 mg PO DAILY 12/01/18 [History] Losartan Potassium 50 mg [Cozaar 50 MG] 75 mg DAILY 12/11/20 [History] Hx Tetanus, Diphtheria Vaccination/Date Given: Yes Hx Influenza Vaccination/Date Given: No Hx Pneumococcal Vaccination/Date Given: No Immunizations Up to Date: Yes Travel Risk - International Travel Have you traveled outside of the country in past 3 weeks: No - Coronavirus Screening Are you exhibiting any of the following symptoms?: No Close contact with a COVID-19 positive Pt in past 14-21 Days: No - Vaccine Status Have you recieved a Covid-19 vaccination: Yes 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 - Vaccination Dates Date of 2cond Vaccination (if applicable): august - Review of Systems Constitutional: No Symptoms, No Fever, No Chills Eyes: No Symptoms Ears, Nose, & Throat: No Symptoms Respiratory: No Symptoms, No Cough, No Dyspnea Cardiac: No Symptoms, No Chest Pain, No Edema, No Syncope Abdominal/Gastrointestinal: No Symptoms, No Abdominal Pain, No Nausea, No Vomiting, No Diarrhea Genitourinary Symptoms: No Symptoms, No Dysuria Musculoskeletal: No Symptoms, No Back Pain, No Neck Pain Skin: No Symptoms, No Rash Neurological: No Symptoms, No Dizziness, No Focal Weakness, No Sensory Changes Psychological: No Symptoms Endocrine: No Symptoms Hematologic/Lymphatic: No Symptoms Immunological/Allergic: No Symptoms All Other Systems: Reviewed and Negative - Past Medical History Pertinent Past Medical History: Yes Neurological History: No Pertinent History ENT History: Glaucoma, Macular Degeneration Cardiac History: Hypertension Respiratory History: COPD, Sleep Apnea Endocrine Medical History: No Pertinent History Musculoskeletal History: Arthritis, Osteoarthritis GI Medical History: Diverticulosis, Hernia History: No Pertinent History Psycho-Social History: Anxiety Male Reproductive Disorders: No Pertinent History Other Medical History: sinus issues, (hole in sinus). 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 . - Past Surgical History Past Surgical History: Yes Neuro Surgical History: No Pertinent History Cardiac: No Pertinent History Respiratory: Lobectomy Gastrointestinal: Hernia Repair, Other Genitourinary: No Pertinent History Musculoskeletal: No Pertinent History Male Surgical History: Vasectomy Other Surgical History: leg stitched after cut with circular saw. right lung- middle lobe resected 2018. feeding tube may 2018. power port left chest. hx of head injury as teenager - hospitalized for 2 weeks - Social History Smoking Status: Former smoker How long have you smoked: 30 Exposure to second hand smoke: No Drug Use: marijuana Patient Lives Alone: No - Nursing Vital Signs Nursing Vital Signs: Initial Vital Signs Temperature 97.5 F 12/11/20 18:22 Pulse Rate 68 12/11/20 18:22 Respiratory Rate 18 12/11/20 18:22 Blood Pressure 151/84 12/11/20 18:22 O2 Sat by Pulse Oximetry 98 12/11/20 18:22 Pain Scale Pain Intensity 4 - Physical Exam General Appearance: no apparent distress, alert, other (Intact tracheostomy) Eye Exam: PERRL/EOMI, eyes nml inspection Ears, Nose, Throat Exam: normal ENT inspection, TMs normal, pharynx normal, moist mucous membranes Neck Exam: normal inspection, non-tender, supple, full range of motion Respiratory Exam: normal breath sounds, lungs clear, No respiratory distress Cardiovascular Exam: regular rate/rhythm, normal heart sounds, normal peripheral pulses Gastrointestinal/Abdomen Exam: soft, normal bowel sounds, No tenderness, No mass Back Exam: normal inspection, normal range of motion, No CVA tenderness, No vertebral tenderness Extremity Exam: normal inspection, normal range of motion, pelvis stable Neurologic Exam: alert, oriented x 3, cooperative, normal mood/affect, nml cerebellar function, nml station & gait, sensation nml, No motor deficits Skin Exam: normal color, warm, dry, No rash Lymphatic Exam: No adenopathy SpO2 Interpretation: normal SpO2: 93 O2 Delivery: Room Air - Course Nursing assessment & vital signs reviewed: Yes Ordered Tests: Active Orders 24 hr Category Date Time Status 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 Care 12/11/20 19:05 Active EKG-ER Only STAT Care 12/11/20 19:04 Active IV Insertion STAT Care 12/11/20 19:04 Active Pulse Oximetry (ED) STAT Care 12/11/20 19:04 Active CBC W DIFF Stat Lab 12/11/20 19:38 Completed CMP Stat Lab 12/11/20 19:38 Completed CULTURE,URINE Stat Lab 12/11/20 19:05 Ordered MAGNESIUM Stat Lab 12/11/20 19:38 Completed TROPONIN Q3H Lab 12/11/20 19:38 Completed TROPONIN Q3H Lab 12/11/20 22:15 Ordered TROPONIN Q3H Lab 12/12/20 01:15 Ordered TROPONIN Q3H Lab 12/12/20 04:15 Ordered TROPONIN Q3H Lab 12/12/20 07:15 Ordered UA W/RFX UR CULTURE Stat Lab 12/11/20 19:04 Ordered Oxygen Venti-Mask 28% RT 12/11/20 20:32 Active Lab/Rad Data: Laboratory Result Diagrams 12/11/20 19:38 12/11/20 19:38 Laboratory Results 12/11/20 12/11/20 12/11/20 Range/Units 19:38 19:38 19:38 WBC 6.0 (4.0-10.5) K/mm3 RBC 3.77 L (4.1-5.6) M/mm3 Hgb 13.4 (12.5-18.0) gm/dl Hct 38.9 L (42-50) % MCV 103.2 H (78-100) fl MCH 35.5 H (26-32) pg MCHC 34.4 (32-36) g/dl RDW 14.6 H (11.5-14.0) % Plt Count 278 (150-450) K/mm3 MPV 9.0 (7.5-11.0) fl Gran % 55.7 (36.0-66.0) % Eos # (Auto) 0.52 H (0-0.5) Absolute Lymphs (auto) 1.10 (1.0-4.6) Absolute Monos (auto) 0.96 (0.0-1.3) Lymphocytes % 18.3 L (24.0-44.0) % Monocytes % 16.0 H (0.0-12.0) % Eosinophils % 8.7 H (0.00-5.0) % Basophils % 1.3 (0.0-0.4) % Absolute Granulocytes 3.34 (1.4-6.9) Basophils # 0.08 (0-0.4) Sodium 139 (137-145) mmol/L Potassium 3.8 (3.5-5.1) mmol/L Chloride 99 (98-107) mmol/L Carbon Dioxide 28 (22-30) mmol/L Anion Gap 16.8 H (5-15) MEQ/L BUN 10 (9-20) mg/dL Creatinine 0.91 (0.66-1.25) mg/dL Estimated GFR > 60.0 ML/MIN Glucose 106 (74-106) mg/dL Calcium 8.9 (8.4-10.2) mg/dL Magnesium 1.8 (1.6-2.3) mg/dL Total Bilirubin 0.50 (0.2-1.3) mg/dL AST 119 H (17-59) U/L ALT 61 H (0-50) U/L Alkaline Phosphatase 65 (38-126) U/L Troponin I < 0.012 (0.000-0.034) ng/mL Serum Total Protein 8.0 (6.3-8.2) g/dL Albumin 4.6 (3.5-5.0) g/dL - Departure Departure Disposition: Home Clinical Impression: Encounter for medical screening examination, Apathy Condition: Stable Critical Care Time: No Referrals: ROMY LOPEZ MD [Primary Care Provider] - Additional Instructions: Discharge/Care Plan ARIN BONDS was seen on 12/11/20 in the Emergency Room. The patient was counseled regarding Diagnosis,Lab results, Imaging studies, need for follow up and when to return to the Emergency Room. Prescriptions given: Discharge Note I have spoken with the patient and/or caregivers. I have explained the patient's condition, diagnosis and treatment plan based on the information available to me at this time. I have answered the patient's and/or caregiver's questions and addressed any concerns. The patient and/or caregivers have as good understanding of the patient's diagnosis, condition and treatment plan as can be expected at this point. The vital signs have been stable. The patient's condition is stable and appropriate for discharge from the emergency department. The patient will pursue further outpatient evaluation with the primary care physician or other designated or consulting physician as outlined in the discha rge instructions. The patient and/or caregivers are agreeable to this plan of care and follow-up instructions have been explained in detail. The patient and/or caregivers have received these instruction. The patient/and or caregivers are aware that any significant change in condition or worsening of symptoms should prompt an immediate return to this or the closest emergency department or call 911.
[2020-12-11 20:07] LABS: ALBUMIN 4.6 g/dL (3.5-5.0); ALKALINE PHOSPHATASE 65 U/L (38-126); ANION GAP 16.8 MEQ/L (5-15); BLOOD UREA NITROGEN 10 mg/dL (9-20); CHLORIDE 99 mmol/L (98-107); Calcium 8.9 mg/dL (8.4-10.2); Carbon Dioxide 28 mmol/L (22-30); Creatinine 1 0.91 mg/dL (0.66-1.25); EST GLOMERULAR FILTRATION RATE > 60.0 ML/MIN; Glucose 106 mg/dL (74-106); MAGNESIUM 1.8 mg/dL (1.6-2.3); Potassium 3.8 mmol/L (3.5-5.1); SGOT/AST 119 U/L (17-59); SGPT/ALT 61 U/L (0-50); SODIUM 139 mmol/L (137-145)
[2020-12-11 21:00] VITALS: BP 135/77; PULSE 66; O2SAT 95
== END 2020-12-11 21:01 | disposition home or self-care (01) ==
LOC: ED 18:12
DX: Z13.89 Encounter for screening for other disorder (principal)
CPT/HCPCS: 36000; 36415; 80053; 83735; 84484; 85025; 93005; 93041; 94760; 99284

== ENCOUNTER 2020-12-15 10:26 | Emergency (ER) | payer BC ==
[2020-12-15 10:59] VITALS: O2SAT 98
--- NOTE | 2020-12-15 11:15 | ERPHSYRPT ---
- History of Present Illness Source: patient, other () Exam Limitations: no limitations Patient Subjective Stated Complaint: back pain r/t epidural given 2-3 weeks ago Triage Nursing Assessment: pt to ED c/o chronic back pain. pt reports epidural 2-3 weeks ago and has had increase in pain, difficulty in ambulation, and increase shakiness. rates 9/10 pain. ambulatory with walker but is somewhat unsteady. called physician who gave epidural as well as PCP and was referred to ED for pain and eval. did schedule appt for f/u tomorrow at 1400. Physician History: 60 yo wm w chronic lumbar pain presents w worsening pain after epidural injectio n 3 weeks ago. Pain 3/10, dull, and worse w movement. He denies fever and acute injury. Pt also denies incontinence of urine/stool. Timing/Duration: other (Chronic) Method of Injury: other (Chronic back pain) Quality: dull, aching Back Pain Location: lumbar spine Severity of Pain-Max: moderate Severity of Pain-Current: mild Modifying Factors: Improves With: movement Associated Symptoms: lower back pain, No fever, No chills, No sweating, No urinary incontinence, No loss of bowel control, No constipation, No nausea, No vomiting, No problems urinating, No light-headedness, No dizziness, No numbness in legs/feet, No weakness, No sensory/motor loss, No tingling in legs/feet, No muscle spasms Previous symptoms: same symptoms as today Allergies/Adverse Reactions: folic acid [From Centrum Silver] Allergy (Verified 12/15/20 10:59) Hives lutein [From Centrum Silver] Allergy (Verified 12/15/20 10:59) lycopene [From Centrum Silver] Allergy (Verified 12/15/20 10:59) multivitamin with minerals [From Centrum Silver] Allergy (Verified 12/15/20 10:59) rosuvastatin calcium [From Crestor] Allergy (Verified 12/15/20 10:59) Home Medications: ALPRAZolam [Xanax 0.5 mg] 1 tab PO BID PRN 10/03/14 [History] Vitamin B Complex [Super B Complex] 1 each PO DAILY 10/03/14 [History] Albuterol 2.5 mg/3 ml Neb [Proventil 2.5 mg/3 ml Neb] 2.5 mg IH Q4HPRN PRN 12/01/18 [History] Atorvastatin Calcium [Lipitor] 10 mg PO HS 12/01/18 [History] Methimazole [Northyx] 10 mg PO DAILY 12/01/18 [History] Thiamine HCl 100 mg [Vitamin B-1 100 mg] 100 mg PO DAILY 12/01/18 [History] Losartan Potassium 50 mg [Cozaar 50 MG] 75 mg DAILY 12/11/20 [History] Hx Tetanus, Diphtheria Vaccination/Date Given: Yes Hx Influenza Vaccination/Date Given: No Hx Pneumococcal Vaccination/Date Given: No Immunizations Up to Date: No Travel Risk - International Travel Have you traveled outside of the country in past 3 weeks: No - Coronavirus Screening Are you exhibiting any of the following symptoms?: No Close contact with a COVID-19 positive Pt in past 14-21 Days: No - Vaccine Status Have you recieved a Covid-19 vaccination: Yes [employer]er: PositiveIDa - Vaccination Dates Date of 2cond Vaccination (if applicable): august - Review of Systems Constitutional: No Symptoms Eyes: No Symptoms Ears, Nose, & Throat: No Symptoms Respiratory: No Symptoms Cardiac: No Symptoms Abdominal/Gastrointestinal: No Symptoms Genitourinary Symptoms: No Symptoms Musculoskeletal: No Symptoms, Back Pain Skin: No Symptoms Neurological: No Symptoms Psychological: No Symptoms Endocrine: No Symptoms Hematologic/Lymphatic: No Symptoms Immunological/Allergic: No Symptoms - Past Medical History Pertinent Past Medical History: Yes Neurological History: No Pertinent History ENT History: Glaucoma, Macular Degeneration Cardiac History: Hypertension Respiratory History: COPD, Sleep Apnea Endocrine Medical History: No Pertinent History Musculoskeletal History: Arthritis, Osteoarthritis GI Medical History: Diverticulosis, Hernia History: No Pertinent History Psycho-Social History: Anxiety Male Reproductive Disorders: No Pertinent History Other Medical History: sinus issues, (hole in sinus). 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 . - Past Surgical History Past Surgical History: Yes Neuro Surgical History: No Pertinent History Cardiac: No Pertinent History Respiratory: Lobectomy Gastrointestinal: Hernia Repair, Other Genitourinary: No Pertinent History Musculoskeletal: No Pertinent History Male Surgical History: Vasectomy Other Surgical History: leg stitched after cut with circular saw. right lung- middle lobe resected 2018. feeding tube may 2018. power port left chest. hx of head injury as teenager - hospitalized for 2 weeks - Social History Smoking Status: Former smoker How long have you smoked: 30 Exposure to second hand smoke: No Drug Use: none Patient Lives Alone: No Significant Family History: no pertinent family hx - Nursing Vital Signs Nursing Vital Signs: Initial Vital Signs Temperature 97.8 F 12/15/20 10:45 Pulse Rate 75 12/15/20 10:45 Respiratory Rate 20 12/15/20 10:45 Blood Pressure 197/85 12/15/20 10:45 O2 Sat by Pulse Oximetry 98 12/15/20 10:45 Pain Scale Pain Intensity [] 9 Pain Intensity 5 Hypertensive - Physical Exam General Appearance: no apparent distress Eye Exam: PERRL/EOMI, eyes nml inspection, No scleral icterus Ears, Nose, Throat Exam: normal ENT inspection, TMs normal, pharynx normal, moist mucous membranes Neck Exam: normal inspection, non-tender, supple, full range of motion, No meningismus, No mass, No Brudzinski, No Kernig's, No carotid bruit Respiratory Exam: normal breath sounds, lungs clear, airway intact (Pt w trach), No respiratory distress Cardiovascular Exam: regular rate/rhythm, normal heart sounds, normal peripheral pulses, No murmur Gastrointestinal Exam: soft, normal bowel sounds, No tenderness Back Exam: vertebral tenderness (Medial to inferior lumbar TTP) Extremity Exam: normal inspection, normal range of motion, pelvis stable Neurologic Exam: alert, oriented x 3, 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, 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, normal mood/affect, sensation nml, No motor deficits, No sensory deficit Skin Exam: normal color, warm, dry Lymphatic Exam: No adenopathy SpO2 Interpretation: normal SpO2: 98 O2 Delivery: Room Air - Course Nursing assessment & vital signs reviewed: Yes - CT Exams Lumbar Spine CT Interpretation: Discussed w/radiologist (DDD/OSMAN/AAA 3.2x3.5) Ordered Tests: Active Orders 24 hr Category Date Time Status LUMBAR SPINE WITH [CT] Stat Exams 12/15/20 11:29 Completed BMP Stat Lab 12/15/20 11:03 Completed Medication Summary Discontinued Medications Generic Name Dose Route Start Last Admin Trade Name Freq PRN Reason Stop Dose Admin Fentanyl Citrate 50 mcg 12/15/20 12:50 12/15/20 13:05 Sublimaze 100 Mcg/2 Ml IV 12/15/20 12:51 50 mcg STAT ONE Administration Fentanyl Citrate Confirm 12/15/20 13:03 Sublimaze 100 Mcg/2 Ml Administered 12/15/20 13:04 Dose 100 mcg .ROUTE .STK-MED ONE Ondansetron HCl 4 mg 12/15/20 12:51 12/15/20 13:05 Zofran 4 Mg/2 Ml Vial IV 12/15/20 12:52 4 mg STAT ONE Administration Ondansetron HCl Confirm 12/15/20 13:03 Zofran 4 Mg/2 Ml Vial Administered 12/15/20 13:04 Dose 4 mg .ROUTE .STK-MED ONE Lab/Rad Data: Laboratory Result Diagrams 12/15/20 11:03 Laboratory Results 12/15/20 Range/Units 11:03 Sodium 137 (137-145) mmol/L Potassium 4.2 (3.5-5.1) mmol/L Chloride 97 L (98-107) mmol/L Carbon Dioxide 28 (22-30) mmol/L Anion Gap 16.0 H (5-15) MEQ/L BUN 14 (9-20) mg/dL Creatinine 0.71 (0.66-1.25) mg/dL Estimated GFR > 60.0 ML/MIN Glucose 101 (74-106) mg/dL Calcium 9.4 (8.4-10.2) mg/dL - Progress Progress Note: 12/15/20 12:54 50umg IV Fentanyl/4mg IV Zofran Pt to see pain physician in AM Counseled pt/family regarding: lab results, diagnosis, need for follow-up, rad results - Departure Departure Disposition: Home Clinical Impression: Chronic lumbar pain Condition: Stable Critical Care Time: No Referrals: ROMY LOPEZ MD [Primary Care Provider] - Instructions: Low Back Pain (DC) Additional Instructions: Follow up with your pain physician in AM Return to ER as needed
[2020-12-15 11:26] LABS: BLOOD UREA NITROGEN 14 mg/dL (9-20); CHLORIDE 97 mmol/L (98-107); Calcium 9.4 mg/dL (8.4-10.2); Carbon Dioxide 28 mmol/L (22-30); Creatinine 1 0.71 mg/dL (0.66-1.25); EST GLOMERULAR FILTRATION RATE > 60.0 ML/MIN; Glucose 101 mg/dL (74-106); Potassium 4.2 mmol/L (3.5-5.1); SODIUM 137 mmol/L (137-145)
--- NOTE | 2020-12-15 12:25 | XRAY ---
Indication: Low back pain and weakness following epidural. Epidural abscess. Multiple contiguous axial images obtained through the lumbar spine using 80 cc Isovue 370 contrast. Sagittal and coronal reformatted images obtained. Cutaneous BB placed over region of pain. Comparison: None Midline posterior cutaneous BB is seen approximately L3-L4 interspace level. No obvious abnormal epidural fluid collection. There is moderate/advanced multilevel thoracolumbar degenerative disc disease as evidenced by annular disc osteophyte complex, vacuum disc phenomena, and disc space loss. Greatest extent L4-S1 levels with there is bilateral foraminal stenosis compounded by bilateral degenerative facet hypertrophy. Sagittal and coronal reformatted images demonstrates normal lumbar lordosis with mild dextroscoliosis centered at L3. No acute compression fracture or subluxation. Visualized noncontrasted soft tissues demonstrates sigmoid diverticulosis, heavy scattered arteriosclerotic calcifications with 3.2 x 3.5 cm distal AAA, fatty liver, and incompletely visualized 1.8 cm left mid exophytic renal cyst. Impression: 1. Moderate/advanced multilevel degenerative disc disease, greatest L4-S1 levels. 2. Incidental dextroscoliosis, fatty liver, incompletely visualized left renal cyst, sigmoid diverticulosis, and distal AAA. 3. Remaining CT lumbar spine with contrast exam is negative.
[2020-12-15] MEDS ORDERED: SUBLIMAZE 100 MCG/2 ML IV ONE (12:50)
[2020-12-15] MEDS ORDERED: Zofran 4 MG/2 ML VIAL IV ONE (12:51)
[2020-12-15] MEDS ORDERED: Zofran 4 MG/2 ML VIAL ONE (13:03)
[2020-12-15] MEDS ORDERED: SUBLIMAZE 100 MCG/2 ML ONE (13:03)
[2020-12-15 13:51] VITALS: BP 168/90; PULSE 66
== END 2020-12-15 13:30 | disposition home or self-care (01) ==
LOC: ED 10:26
DX: M54.5 Low back pain (principal); G89.29 Other chronic pain; Z79.899 Other long term (current) drug therapy; I10 Essential (primary) hypertension
CPT/HCPCS: 36000; 36415; 72131; 80048; 96374; 96375; 99284; J2405; J3010

== ENCOUNTER 2021-06-07 02:42 | Emergency (ER) | payer BC ==
--- NOTE | 2021-06-07 03:11 | ERPHSYRPT ---
- History of Present Illness Time Seen by Provider: 06/07/21 03:05 Patient Subjective Stated Complaint: pt states he has been having intermittent sharp pains in his lt jaw. states tonight the pain woke him up and was worse than his usual pain Triage Nursing Assessment: pt alert and oriented, answers questions approp. pt ambulates into room with steady gait noted. respirations nonlabored, trach. skin warm and dry. Physician History: This is a 60-year-old white male patient of Dr. Lopez who has history of laryngeal cancer and has had chemotherapy and radiation to this area. The surgery was approximately 3 years ago. In the last month or so he states that she has been having bilateral jaw pain that is worse on the left than the right. Patient has a tracheostomy in place its permanent. Timing/Duration: gradual onset, weeks Severity: mild (Moderate) ENT Location: facial (Bilateral jaw left greater than right) Prearrival Treatment: over the counter meds Modifying Factors: Improves With: nothing Associated Symptoms: jaw pain (Bilateral. Left greater than right) Allergies/Adverse Reactions: folic acid [From Centrum Silver] Allergy (Verified 12/15/20 10:59) Hives lutein [From Centrum Silver] Allergy (Verified 12/15/20 10:59) lycopene [From Centrum Silver] Allergy (Verified 12/15/20 10:59) multivitamin with minerals [From Centrum Silver] Allergy (Verified 12/15/20 10:59) rosuvastatin calcium [From Crestor] Allergy (Verified 12/15/20 10:59) Home Medications: ALPRAZolam [Xanax 0.5 mg] 1 tab PO BID PRN 10/03/14 [History] Vitamin B Complex [Super B Complex] 1 each PO DAILY 10/03/14 [History] Albuterol 2.5 mg/3 ml Neb [Proventil 2.5 mg/3 ml Neb] 2.5 mg IH Q4HPRN PRN 12/01/18 [History] Atorvastatin Calcium [Lipitor] 10 mg PO HS 12/01/18 [History] Thiamine HCl 100 mg [Vitamin B-1 100 mg] 100 mg PO DAILY 12/01/18 [History] methIMAzole [Northyx] 10 mg PO DAILY 12/01/18 [History] Losartan Potassium 50 mg [Cozaar 50 MG] 75 mg DAILY 12/11/20 [History] Hx Tetanus, Diphtheria Vaccination/Date Given: Yes Hx Influenza Vaccination/Date Given: No Hx Pneumococcal Vaccination/Date Given: No Immunizations Up to Date: Yes Travel Risk - International Travel Have you traveled outside of the country in past 3 weeks: No - Coronavirus Screening Are you exhibiting any of the following symptoms?: No Close contact with a COVID-19 positive Pt in past 14-21 Days: No - Vaccine Status Have you recieved a Covid-19 vaccination: No Latcher: Moderna - Vaccination Dates Date of 2cond Vaccination (if applicable): august - Review of Systems Constitutional: No Symptoms Eyes: No Symptoms Ears, Nose, & Throat: Other (Bilateral jaw pain left greater than right) Respiratory: No Symptoms Cardiac: No Symptoms Abdominal/Gastrointestinal: No Symptoms Genitourinary Symptoms: No Symptoms Musculoskeletal: No Symptoms Skin: No Symptoms Neurological: No Symptoms Psychological: No Symptoms Endocrine: No Symptoms Hematologic/Lymphatic: No Symptoms Immunological/Allergic: No Symptoms All Other Systems: Reviewed and Negative - Past Medical History Pertinent Past Medical History: Yes Neurological History: No Pertinent History ENT History: Glaucoma, Macular Degeneration Cardiac History: Hypertension Respiratory History: COPD Endocrine Medical History: No Pertinent History Musculoskeletal History: Arthritis, Osteoarthritis GI Medical History: Diverticulosis, Hernia History: No Pertinent History Psycho-Social History: Anxiety Male Reproductive Disorders: No Pertinent History Other Medical History: sinus issues, (hole in sinus). 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 . - Past Surgical History Past Surgical History: Yes Neuro Surgical History: No Pertinent History Cardiac: No Pertinent History Respiratory: Lobectomy Gastrointestinal: Hernia Repair, Other Genitourinary: No Pertinent History Musculoskeletal: No Pertinent History Male Surgical History: Vasectomy Other Surgical History: leg stitched after cut with circular saw. right lung- middle lobe resected 2018. feeding tube may 2018. power port left chest. hx of head injury as teenager - hospitalized for 2 weeks - Social History Smoking Status: Former smoker How long have you smoked: 30 Exposure to second hand smoke: No Drug Use: none Patient Lives Alone: No Significant Family History: no pertinent family hx - Nursing Vital Signs Nursing Vital Signs: Initial Vital Signs Temperature 97.9 F 06/07/21 02:51 Pulse Rate 83 02/20/22 02:51 Respiratory Rate 18 06/07/21 02:51 Blood Pressure 188/107 06/07/21 02:51 O2 Sat by Pulse Oximetry 99 06/07/21 02:51 Pain Scale Pain Intensity 6 - Physical Exam General Appearance: no apparent distress, alert, anxiety Eye Exam: bilateral eye: normal inspection, PERRL, EOMI Ear Exam: bilateral ear: auricle normal Nasal Exam: normal inspection Throat Exam: moist mucus membranes (Bilateral jaw pain left greater than right) Neck Exam: non-tender (Patient has a permanent tracheostomy in place), supple, full range of motion Cardiovascular/Respiratory Exam: chest non-tender, no respiratory distress Abdominal Exam: non-tender Neurologic Exam: alert, oriented x 3, 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, 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, normal mood/affect, nml cerebellar function, nml station & gait, sensation nml Skin Exam: normal color, warm, dry SpO2 Interpretation: normal SpO2: 99 O2 Delivery: Room Air - Course Nursing assessment & vital signs reviewed: Yes Ordered Tests: Active Orders 24 hr Category Date Time Status FACIAL BONES WO CONTRAST [CT] Stat Exams 06/07/21 03:11 Taken Medication Summary Discontinued Medications Generic Name Dose Route Start Last Admin Trade Name Aleksander PRN Reason Stop Dose Admin Hydromorphone HCl 1 mg 06/07/21 03:25 06/07/21 03:37 Hydromorphone 1 Mg/1ml Inj 1 Mg/Ml Syringe IM 06/07/21 03:26 1 mg STAT ONE Administration Hydromorphone HCl Confirm 06/07/21 03:35 Hydromorphone 1 Mg/1ml Inj 1 Mg/Ml Syringe Administered 06/07/21 03:36 Dose 1 mg .ROUTE .STK-MED ONE Ondansetron HCl 4 mg 06/07/21 03:25 06/07/21 03:38 Zofran 4 Mg/Udtablet Orally Disintegrating PO 06/07/21 03:26 4 mg STAT ONE Administration Ondansetron HCl Confirm 06/07/21 03:34 Zofran 4 Mg/Udtablet Orally Disintegrating Administered 06/07/21 03:35 Dose 4 mg .ROUTE .STK-MED ONE - Progress Progress: improved Progress Note: 06/07/21 04:51 CAT scan of the face shows no evidence of any acute fractures. There is no evidence of any abscesses present. There is generalized poor dentition. Counseled pt/family regarding: diagnosis, need for follow-up, rad results - Departure Departure Disposition: Home Clinical Impression: Jaw pain Condition: Stable Critical Care Time: No Referrals: ROMY LOPEZ MD [Primary Care Provider] - Follow up/PCP as directed Additional Instructions: Take your medication as prescribed. Follow-up with your primary care physician for further management. Prescriptions: Hydrocodone/Acetaminophen [Hydrocodone-Acetamn 7.5-325/15] 10 ml PO Q8H PRN PRN #120 ml MDD 30 ml PRN Reason: Cough
[2021-06-07] MEDS ORDERED: ZOFRAN ODT 4 MG PO ONE (03:25)
[2021-06-07] MEDS ORDERED: Hydromorphone 1 mg/ml Injection IM ONE (03:25)
[2021-06-07] MEDS ORDERED: ZOFRAN ODT 4 MG ONE (03:34)
[2021-06-07] MEDS ORDERED: Hydromorphone 1 mg/ml Injection ONE (03:35)
[2021-06-07 05:26] VITALS: BP 172/89; PULSE 84; O2SAT 98
--- NOTE | 2021-06-07 08:59 | XRAY ---
Indication: Bilateral jaw pain, left greater than right 2 weeks. Multiple contiguous axial images obtained through the facial bones. Sagittal and coronal reformatted images obtained. Comparison: December 01, 2018. Again patient is nearly edentulous. No acute fracture, suspicious bony lesions, or osseous destructive process. Orbits including roof, jiménez, and floors are intact. Mild mucosal thickening both maxillary sinuses without fluid leveling. Remaining paranasal sinuses, nasal passages, and mastoid air cells are clear. Again minimal nasal septal deviation to the left. TMJ bilaterally symmetric. Again mild degenerative changes of the visualized cervical spine. Again moderate/significant bilateral carotid calcifications. Visualized oropharynx is markedly narrowed. Visualized anterior neck also demonstrates superficial and deep soft tissue swelling/edema. No pathologic cervical lymphadenopathy. Remaining visualized noncontrasted soft tissues and base of brain unremarkable. Impression: 1. New paranasal sinus disease. 2. New oropharyngeal narrowing and anterior neck soft tissue swelling/edema. History of laryngeal cancer with laryngeal edema reported on barium swallow study April 30, 2021. 3. Again carotid calcifications and cervical degenerative changes. 4. Remaining CT facial bones is negative. Comment: Preliminary interpretation made by [facility] who does not report laryngeal narrowing and neck soft tissue.
== END 2021-06-07 05:18 | disposition home or self-care (01) ==
LOC: ED 02:42
DX: R68.84 Jaw pain (principal); Z85.21 Personal history of malignant neoplasm of larynx; Z93.0 Tracheostomy status; I10 Essential (primary) hypertension; J44.9 Chronic obstructive pulmonary disease, unspecified; Z79.891 Long term (current) use of opiate analgesic; Z79.899 Other long term (current) drug therapy
CPT/HCPCS: 70486; 96372; 99284; J1170; Q0162

== ENCOUNTER 2021-11-03 08:20 | Day surgery (SDC) | payer BC ==
[~2021-11-03 08:20] MED LIST: ACETAZOLAMIDE 250 MG TABLET PO ONE; Ak-Dilate OPHTHALMIC*** 1.065 ML, Cyclogyl 1% OPHTH SOL 1.065 ML, GATIFLOXACIN 0.5% OPH... OP ONE; BETADINE 5% OPHTHALMIC 30 ML OP ONE; Lactated Ringers 1,000 ML IV SCH; NON-FORMULARY ITEM OP ONE; TETRACAINE 0.5% STERI-UNIT SOL OP ONE; Zofran 4 MG/2 ML VIAL IV PRN; cefUROXime sodium 0.005 GM in Sodium Chloride Flush 30 ML*** 0.5 ML IJ ONE
[2021-11-03] MEDS ORDERED: Lactated Ringers 1,000 ML IV ONE (08:45)
[2021-11-03] MEDS ORDERED: DIPRIVAN 200 MG/20 ML IV ONE ×3 (10:21→10:58)
[2021-11-03] MEDS ORDERED: Versed 2 MG/2 ML Injection ONE (10:48)
[2021-11-03 11:26] VITALS: BP 170/82; PULSE 55; O2SAT 97
[2021-11-03] MEDS ORDERED: LIDOCAINE HCL 1% 50 MG/5 ML VL PF IJ ONE (16:00)
[2021-11-03] MEDS ORDERED: Epinephrine Preservative Free 1 MG/ML INTRAOP ONE (16:00)
== END 2021-11-03 11:41 | disposition home or self-care (01) ==
LOC: SDC 08:20
PROVIDERS: ATTEND Ophthalmology
DX: H25.811 Combined forms of age-related cataract, right eye (principal)
CPT/HCPCS: C1780; J0171; J2001; J2250; J2704; A9270-GY

== ENCOUNTER 2021-11-22 11:55 | Emergency (ER) | payer BC ==
[2021-11-22] MEDS ORDERED: XYLOCAINE 1% HCL 20 ML MDV IJ ONE (11:56)
--- NOTE | 2021-11-22 11:58 | ERPHSYRPT ---
- History of Present Illness Time Seen by Provider: 11/22/21 11:58 Source: patient, family Exam Limitations: no limitations Physician History: This is a 61-year-old white male patient of Dr. Lopez who presents with left side facial pain. He has had recurrent pain on this side. 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 He is now experiencing intermittent nerve type pain. Patient was placed, recently, on steroids and a Z-Baljit. He still has 2 or 3 days left of this therapy. Patient has a history of hypertension, COPD, arthritis, osteoarthritis and anxiety issues. Patient has no shortness of breath. He has no chest pain. Timing/Duration: gradual onset, persistent Severity: mild (To moderate) ENT Location: facial (Left side) Prearrival Treatment: prescription meds Modifying Factors: Improves With: other (Hurts to chew and eat) Associated Symptoms: jaw pain (Left side jaw) Allergies/Adverse Reactions: folic acid [From Centrum Silver] Allergy (Verified 11/19/21 08:36) Hives lutein [From Centrum Silver] Allergy (Verified 11/19/21 08:36) lycopene [From Centrum Silver] Allergy (Verified 11/19/21 08:36) multivitamin with minerals [From Centrum Silver] Allergy (Verified 11/22/21 12:19) rosuvastatin calcium [From Crestor] Allergy (Verified 11/19/21 08:36) Home Medications: ALPRAZolam [Xanax 0.5 mg] 1 tab PO BID PRN 10/03/14 [History] Albuterol 2.5 mg/3 ml Neb [Proventil 2.5 mg/3 ml Neb] 2.5 mg IH Q4HPRN PRN 12/01/18 [History] Atorvastatin Calcium [Lipitor] 10 mg PO HS 12/01/18 [History] Thiamine HCl 100 mg [Vitamin B-1 100 mg] 100 mg PO DAILY 12/01/18 [History] Losartan Potassium 50 mg [Cozaar 50 MG] 75 mg DAILY 12/11/20 [History] Ascorbic Acid 500 mg [Vitamin C 500 MG] 500 mg PO BID 10/22/21 [History] Loperamide HCl 2 mg [Imodium 2 mg] 2 mg PO UD PRN 10/22/21 [History] Melatonin/Pyridoxine [Melatonin 5 mg Tablet] 5 mg PO HS PRN 10/22/21 [History] Phenylephrine HCl [4 Way] 1 spray IH UD PRN 10/22/21 [History] Hx Tetanus, Diphtheria Vaccination/Date Given: Yes Hx Influenza Vaccination/Date Given: No Hx Pneumococcal Vaccination/Date Given: No Travel Risk - International Travel Have you traveled outside of the country in past 3 weeks: No - Coronavirus Screening Are you exhibiting any of the following symptoms?: No Close contact with a COVID-19 positive Pt in past 14-21 Days: No - Vaccine Status Have you recieved a Covid-19 vaccination: No Grain Miller Helper: Moderna - Vaccination Dates Date of 2cond Vaccination (if applicable): august - Review of Systems Constitutional: No Symptoms Eyes: No Symptoms Ears, Nose, & Throat: Other (Left jaw pain) Respiratory: No Symptoms Cardiac: No Symptoms Abdominal/Gastrointestinal: No Symptoms Genitourinary Symptoms: No Symptoms Musculoskeletal: No Symptoms Skin: No Symptoms Neurological: No Symptoms Psychological: No Symptoms Endocrine: No Symptoms Hematologic/Lymphatic: No Symptoms Immunological/Allergic: No Symptoms All Other Systems: Reviewed and Negative - Past Medical History Pertinent Past Medical History: Yes Neurological History: No Pertinent History ENT History: Cataracts Cardiac History: Hypertension Respiratory History: COPD, Other Endocrine Medical History: No Pertinent History Musculoskeletal History: Arthritis, Osteoarthritis GI Medical History: Diverticulosis, Hernia History: No Pertinent History Psycho-Social History: Anxiety Male Reproductive Disorders: No Pertinent History Other Medical History: sinus issues, (hole in sinus). 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 . - Past Surgical History Past Surgical History: Yes Neuro Surgical History: No Pertinent History Cardiac: No Pertinent History Respiratory: Lobectomy Gastrointestinal: Hernia Repair, Other Genitourinary: No Pertinent History Musculoskeletal: No Pertinent History Male Surgical History: Vasectomy Other Surgical History: leg stitched after cut with circular saw. right lung- middle lobe resected 2018. feeding tube may 2018. power port left chest. hx of head injury as teenager - hospitalized for 2 weeks - Social History Smoking Status: Former smoker How long have you smoked: 30 Exposure to second hand smoke: No Drug Use: none Patient Lives Alone: No Significant Family History: no pertinent family hx - Nursing Vital Signs Nursing Vital Signs: Initial Vital Signs Temperature 98.2 F 11/22/21 12:05 Pulse Rate 78 11/22/21 12:05 Blood Pressure 183/84 11/22/21 12:05 O2 Sat by Pulse Oximetry 97 11/22/21 12:05 Pain Scale Pain Intensity 10 - Physical Exam General Appearance: mild distress, alert, anxiety Eye Exam: bilateral eye: normal inspection, PERRL, EOMI Ear Exam: bilateral ear: auricle normal, canal normal, TM normal Nasal Exam: normal inspection Throat Exam: normal, pharynx normal, No excessive drooling Neck Exam: supple, full range of motion, trachea midline (Patient has tracheostomy in place. There is no evidence of any infection or bleeding around the site.) Cardiovascular/Respiratory Exam: chest non-tender, no respiratory distress Abdominal Exam: non-tender Neurologic Exam: alert, oriented x 3, cooperative, oil dispatcher II-XII nml as tested, normal mood/affect, nml cerebellar function, nml station & gait, sensation nml Skin Exam: normal color, warm, dry SpO2 Interpretation: normal O2 Delivery: Room Air - Course Nursing assessment & vital signs reviewed: Yes Ordered Tests: Medication Summary Generic Name Dose Route Start Last Admin Trade Name Freq PRN Reason Stop Dose Admin Ondansetron HCl 4 mg 11/22/21 12:59 Zofran 4 Mg/Udtablet Orally Disintegrating PO 11/22/21 13:00 STAT ONE Discontinued Medications Generic Name Dose Route Start Last Admin Trade Name Freq PRN Reason Stop Dose Admin Ceftriaxone Sodium 1,000 mg 11/22/21 12:58 Ceftriaxone Sodium 1000 Mg Inj Vial IM 11/22/21 12:59 STAT ONE Methylprednisolone Sodium 0 mg 11/22/21 12:58 Succinate 125 mg/ Sterile IM 11/22/21 12:59 Water 2 ml STAT ONE Hydromorphone HCl 1 mg 11/22/21 12:58 Hydromorphone 1 Mg/1ml Inj 1 Mg/Ml Syringe IM 11/22/21 12:59 STAT ONE - Progress Progress: improved, pain not gone completely Counseled pt/family regarding: diagnosis, need for follow-up - Departure Departure Disposition: Home Clinical Impression: Pain in mandible, Radiation adverse effect Condition: Stable Critical Care Time: No Referrals: ROMY LOPEZ MD [Primary Care Provider] - Follow up/PCP as directed Additional Instructions: Continue your antibiotics and steroids as prescribed. Follow-up with your radiation oncologist and your learning support specialist for further evaluation and management. Make sure you do not take your Xanax, amitriptyline or Clayton pain medicine within 3 to 4 hours of each other as discussed. Prescriptions: Amitriptyline HCl 25 mg [Amitriptyline 25 mg Tablet] 25 mg PO QHS #7 tablet Hydrocodone/APAP 5/325 [Cl[place] 5/325 mg] 1 each PO Q12H PRN PRN #8 tablet MDD 2 PRN Reason: Pain
[2021-11-22] MEDS ORDERED: Hydromorphone 1 mg/ml Injection IM ONE (12:58)
[2021-11-22] MEDS ORDERED: solu-MEDROL 125 MG, Sterile H2O 10 ml 2 ML IM ONE ×2 (12:58)
[2021-11-22] MEDS ORDERED: Rocephin 1000 MG INJ IM ONE (12:58)
[2021-11-22] MEDS ORDERED: ZOFRAN ODT 4 MG PO ONE (12:59)
[2021-11-22] MEDS ORDERED: Sterile H2O 10 ml IJ ONE (13:13)
[2021-11-22] MEDS ORDERED: ZOFRAN ODT 4 MG ONE (13:14)
[2021-11-22] MEDS ORDERED: solu-MEDROL ONE (13:14)
[2021-11-22] MEDS ORDERED: Rocephin 1000 MG INJ ONE (13:14)
[2021-11-22] MEDS ORDERED: Hydromorphone 1 mg/ml Injection ONE (13:14)
[2021-11-22 14:05] VITALS: BP 171/83; PULSE 88; O2SAT 96
== END 2021-11-22 14:05 | disposition home or self-care (01) ==
LOC: ED 11:55
DX: T66.XXXA Radiation sickness, unspecified, initial encounter (principal); Y63.3 Inadvertent exposure of patient to radiation during medical care; R68.84 Jaw pain; I10 Essential (primary) hypertension; J44.9 Chronic obstructive pulmonary disease, unspecified; Z85.21 Personal history of malignant neoplasm of larynx; Z92.3 Personal history of irradiation; Z79.899 Other long term (current) drug therapy; Z79.891 Long term (current) use of opiate analgesic
CPT/HCPCS: 96372; 99283; J0696; J1170; J2930; Q0162

== ENCOUNTER 2021-12-01 10:17 | Day surgery (SDC) | payer BC ==
[~2021-12-01 10:17] MED LIST changes: -ACETAZOLAMIDE 250 MG TABLET PO ONE; -Zofran 4 MG/2 ML VIAL IV PRN
[2021-12-01] MEDS ORDERED: LIDOCAINE HCL 1% 50 MG/5 ML VL PF IJ ONE (10:18)
[2021-12-01] MEDS ORDERED: Epinephrine Preservative Free 1 MG/ML IJ ONE (10:18)
[2021-12-01] MEDS ORDERED: Lactated Ringers 1,000 ML IV ONE (10:56)
[2021-12-01] MEDS ORDERED: ACETAZOLAMIDE 250 MG TABLET PO ONE (12:00)
[2021-12-01] MEDS ORDERED: Zofran 4 MG/2 ML VIAL IV PRN (12:00)
[2021-12-01] MEDS ORDERED: DIPRIVAN 200 MG/20 ML IV ONE (12:46)
[2021-12-01] MEDS ORDERED: Xylocaine-Mpf 2% 5 Ml Vial ONE (12:46)
[2021-12-01] MEDS ORDERED: BREVIBLOC 100 MG/10 ML IV ONE (13:10)
[2021-12-01 13:17] VITALS: O2SAT 92
[2021-12-01 13:37] VITALS: BP 140/56; PULSE 55
== END 2021-12-01 13:35 | disposition home or self-care (01) ==
LOC: SDC 10:17
PROVIDERS: ATTEND Ophthalmology
DX: H25.812 Combined forms of age-related cataract, left eye (principal)
CPT/HCPCS: C1780; J0171; J2001; J2704; A9270-GY

== ENCOUNTER 2023-05-03 12:30 | Emergency (ER) | payer BC ==
[2023-05-03 12:49] VITALS: TEMP 98.6
[2023-05-03 13:18] LABS: BASOPHIL % 0.9 % (0.0-0.4); Basophil (Absolute #) 0.05 x10^3/uL (0-0.4); Eosinophil % 6.7 % (0.00-5.0); Eosinophil (Absolute #) 0.39 x10^3/uL (0-0.5); Hematocrit 39.9 % (42-50); Hemoglobin 13.5 g/dL (12.5-18.0); IMMATURE GRAN # 0.02 x10^3u/L (0.00-0.03); IMMATURE GRAN % 0.3 % (0.00-0.4); Lymphocyte (Absolute #) 0.86 x10^3/uL (1.0-4.6); Lymphocytes % 14.7 % (24.0-44.0); Mean Cell Volume 97.8 fL (78-100); Mean Corpuscular Hemoglobin 33.1 pg (26-32); Mean Corpuscular Hgb Concent. 33.8 g/dL (32-36); Mean Platelet Volume 8.7 fL (7.5-11.0); Monocyte (Absolute #) 0.63 x10^3/uL (0.0-1.3); Monocytes % 10.8 % (0.0-12.0); Neutrophil % 66.6 % (36.0-66.0); Platelet Count 328 x10^3/uL (150-450); Red Blood Count 4.08 x10^6/uL (4.1-5.6); Red Cell Distribution Width 13.7 % (11.5-14.0); White Blood Count 5.9 x10^3/uL (4.0-10.5)
[2023-05-03 13:32] LABS: ANION GAP 15.5 MEQ/L (5-15); BILIRUBIN,TOTAL 0.8 mg/dL (0.2-1.3); Creatinine 1 0.56 mg/dL (0.66-1.25); EST GLOMERULAR FILTRATION RATE 110.1 ML/MIN; Potassium 4.1 mmol/L (3.5-5.1); Total Protein 9.1 g/dL (6.3-8.2)
--- NOTE | 2023-05-03 13:40 | ERPHSYRPT ---
- History of Present Illness Time Seen by Provider: 05/03/23 12:50 Source: patient Exam Limitations: no limitations Patient Subjective Stated Complaint: Abnormal labs- Sodium level 127 Triage Nursing Assessment: Patient ambulated back to ED and transferred self to bed. Patient A+O X3. Patient's skin pink, warm and dry. Patient had labs drawn yesterday and he received a phone call today stating his sodium levels were 127 and to come to ED for eval. Patient denies pain or discomfort. Patient reports thicker, sputum from trach the past few days. Physician History: Patient is 62-year-old male presents to emergency department as a referral from his gun barrel finisher for evaluation and treatment of hyponatremia. Patient reports he is currently asymptomatic. Patient has a history of hyponatremia. Patient was recently discharged from [facility] for a sodium of 119. Patient was admitted. Patient was discharged with a sodium of 131. No chest pain or shortness of breath. No nausea vomiting or diaphoresis. Patient has a tracheostomy. Patient has a history of throat cancer which according to has since been cured. No other complaints at this time. Portions of this note were created with voice recognition technology. There may be grammatical, spelling, punctuation or sound alike errors Timing/Duration: today Severity: mild Modifying Factors: Improves With: nothing Associated Symptoms: denies symptoms Allergies/Adverse Reactions: folic acid [From Centrum Silver] Allergy (Verified 05/03/23 12:38) Hives lutein [From Centrum Silver] Allergy (Verified 05/03/23 12:38) lycopene [From Centrum Silver] Allergy (Verified 05/03/23 12:38) multivitamin with minerals [From Centrum Silver] Allergy (Verified 05/03/23 12:38) rosuvastatin calcium [From Crestor] Allergy (Verified 05/03/23 12:38) Home Medications: ALPRAZolam [Xanax 0.5 mg] 1 tab PO BID PRN 10/03/14 [History] Albuterol 2.5 mg/3 ml Neb [Proventil 2.5 mg/3 ml Neb] 2.5 mg IH Q4HPRN PRN 12/01/18 [History] Atorvastatin Calcium [Lipitor] 10 mg PO HS 12/01/18 [History] Thiamine HCl 100 mg [Vitamin B-1 100 mg] 100 mg PO DAILY 12/01/18 [History] Losartan Potassium 50 mg [Cozaar 50 MG] 75 mg DAILY 12/11/20 [History] Ascorbic Acid 500 mg [Vitamin C 500 MG] 500 mg PO BID 10/22/21 [History] Loperamide HCl 2 mg [Imodium 2 mg] 2 mg PO UD PRN 10/22/21 [History] Melatonin/Pyridoxine [Melatonin 5 mg Tablet] 5 mg PO HS PRN 10/22/21 [History] Phenylephrine HCl [4 Way] 1 spray IH UD PRN 10/22/21 [History] Gabapentin 600 mg PO TID 12/01/21 [History] Hx Tetanus, Diphtheria Vaccination/Date Given: Yes Hx Influenza Vaccination/Date Given: Yes Hx Pneumococcal Vaccination/Date Given: Yes Immunizations Up to Date: Yes Travel Risk - International Travel Have you traveled outside of the country in past 3 weeks: No - Coronavirus Screening Are you exhibiting any of the following symptoms?: No Close contact with a COVID-19 positive Pt in past 14-21 Days: No - Vaccine Status Have you recieved a Covid-19 vaccination: Yes Pediatric Speech Therapist: Unknown - Vaccination Dates Dates if Unknown: na - Review of Systems Constitutional: No Symptoms, No Fever, No Chills Eyes: No Symptoms Ears, Nose, & Throat: No Symptoms Respiratory: No Symptoms, No Cough, No Dyspnea Cardiac: No Symptoms, No Chest Pain, No Edema, No Syncope Abdominal/Gastrointestinal: No Symptoms, No Abdominal Pain, No Nausea, No Vomiting, No Diarrhea Genitourinary Symptoms: No Symptoms, No Dysuria Musculoskeletal: No Symptoms, No Back Pain, No Neck Pain Skin: No Symptoms, No Rash Neurological: No Symptoms, No Dizziness, No Focal Weakness, No Sensory Changes Psychological: No Symptoms Endocrine: No Symptoms Hematologic/Lymphatic: No Symptoms Immunological/Allergic: No Symptoms All Other Systems: Reviewed and Negative - Past Medical History Pertinent Past Medical History: Yes Neurological History: No Pertinent History ENT History: Cataracts Cardiac History: Hypertension, Other Respiratory History: COPD, Other Endocrine Medical History: No Pertinent History Musculoskeletal History: Arthritis, Osteoarthritis GI Medical History: Diverticulosis, Hernia History: No Pertinent History Psycho-Social History: Anxiety Male Reproductive Disorders: No Pertinent History Other Medical History: sinus issues, (hole in sinus). 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 AAA being observed. . - Past Surgical History Past Surgical History: Yes Neuro Surgical History: No Pertinent History Cardiac: No Pertinent History Respiratory: Lobectomy Gastrointestinal: Hernia Repair, Other Genitourinary: No Pertinent History Musculoskeletal: No Pertinent History Male Surgical History: Vasectomy Other Surgical History: leg stitched after cut with circular saw. right lung- middle lobe resected 2018. feeding tube may 2018. power port left chest. hx of head injury as teenager - hospitalized for 2 weeks. feeding tube and power port have both been removed - Social History Smoking Status: Former smoker How long have you smoked: 30 Exposure to second hand smoke: No Drug Use: none Patient Lives Alone: No Significant Family History: no pertinent family hx - Nursing Vital Signs Nursing Vital Signs: Initial Vital Signs Temperature 98.6 F 05/03/23 12:40 Pulse Rate 73 05/03/23 12:40 Respiratory Rate 20 05/03/23 12:40 Blood Pressure 161/85 05/03/23 12:40 O2 Sat by Pulse Oximetry 98 05/03/23 12:40 Pain Scale Pain Intensity 0 - Physical Exam General Appearance: no apparent distress, alert Eye Exam: PERRL/EOMI, eyes nml inspection Ears, Nose, Throat Exam: normal ENT inspection, TMs normal, pharynx normal, moist mucous membranes Neck Exam: normal inspection, non-tender, supple, full range of motion Respiratory Exam: normal breath sounds, lungs clear, airway intact, No respiratory distress Cardiovascular Exam: regular rate/rhythm, normal heart sounds, normal peripheral pulses Gastrointestinal/Abdomen Exam: soft, normal bowel sounds, No tenderness, No mass Back Exam: normal inspection, normal range of motion, No CVA tenderness, No vertebral tenderness Extremity Exam: normal inspection, normal range of motion, pelvis stable Neurologic Exam: alert, oriented x 3, cooperative, normal mood/affect, sensation nml, No motor deficits Skin Exam: normal color, warm, dry, No rash Lymphatic Exam: No adenopathy SpO2 Interpretation: normal SpO2: 98 O2 Delivery: Room Air - Course Nursing assessment & vital signs reviewed: Yes Ordered Tests: Active Orders 24 hr Category Date Time Status CBC W DIFF Stat Lab 05/03/23 13:00 Completed CMP Stat Lab 05/03/23 13:00 Completed Medication Summary Generic Name Dose Route Start Last Admin Trade Name Aleksander PRN Reason Stop Dose Admin Sodium Chloride 1,000 mls @ 100 mls/hr 05/03/23 14:30 05/03/23 15:04 Sodium Chloride 0.9% 1000 Ml IV 06/02/23 14:29 100 mls/hr .Q10H JUNAID Administration Lab/Rad Data: Laboratory Result Diagrams 05/03/23 13:00 05/03/23 13:00 Laboratory Results 05/03/23 05/03/23 Range/Units 13:00 13:00 WBC 5.9 (4.0-10.5) x10^3/uL RBC 4.08 L (4.1-5.6) x10^6/uL Hgb 13.5 (12.5-18.0) g/dL Hct 39.9 L (42-50) % MCV 97.8 (78-100) fL MCH 33.1 H (26-32) pg MCHC 33.8 (32-36) g/dL RDW 13.7 (11.5-14.0) % Plt Count 328 (150-450) x10^3/uL MPV 8.7 (7.5-11.0) fL Gran % 66.6 H (36.0-66.0) % Immature Gran % (Auto) 0.3 (0.00-0.4) % Nucleat RBC Rel Count 0.0 (0.00-0.1) % Eos # (Auto) 0.39 (0-0.5) x10^3/uL Immature Gran # (Auto) 0.02 (0.00-0.03) x10^3u/L Absolute Lymphs (auto) 0.86 L (1.0-4.6) x10^3/uL Absolute Monos (auto) 0.63 (0.0-1.3) x10^3/uL Absolute Nucleated RBC 0.00 (0.00-0.01) x10^3u/L Lymphocytes % 14.7 L (24.0-44.0) % Monocytes % 10.8 (0.0-12.0) % Eosinophils % 6.7 H (0.00-5.0) % Basophils % 0.9 (0.0-0.4) % Absolute Granulocytes 3.90 (1.4-6.9) x10^3/uL Basophils # 0.05 (0-0.4) x10^3/uL Sodium 128 L (137-145) mmol/L Potassium 4.1 (3.5-5.1) mmol/L Chloride 92 L (98-107) mmol/L Carbon Dioxide 24 (22-30) mmol/L Anion Gap 15.5 H (5-15) MEQ/L BUN 27 H (9-20) mg/dL Creatinine 0.56 L (0.66-1.25) mg/dL Estimated GFR 110.1 ML/MIN Glucose 101 (74-106) mg/dL Calcium 10.0 (8.4-10.2) mg/dL Total Bilirubin 0.80 (0.2-1.3) mg/dL AST 39 (17-59) U/L ALT 18 (0-50) U/L Alkaline Phosphatase 51 (38-126) U/L Serum Total Protein 9.1 H (6.3-8.2) g/dL Albumin 5.0 (3.5-5.0) g/dL - Progress Progress: improved Progress Note: Case discussed with Dr. Gupta patient's gun barrel finisher who advises transfer to [facility] for further evaluation and treatment. I spoke to Dr. Bhat at 2:28 PM. Patient is a 62-year-old male with history of hyponatremia presents to our ED as a referral from his primary care doctor for evaluation of a sodium level of 127 performed on an outpatient basis. The laboratory workup was performed as informed nurse practitioner that patient had been sleeping and appeared more fatigued than usual. Patient states he is asymptomatic at this time. Repeat laboratory workup revealed a sodium of 128. Patient otherwise feels well. IV fluids infusing 05/03/23 14:22 05/03/23 14:47 Case discussed with hospitalist at [facility] who accepts transfer at 4:06 PM 05/03/23 18:47 Patient is a 62-year-old male with a history of hyponatremia. Patient had a symptomatic episode. Patient was found to be hyponatremic. Patient presented to our ED for further evaluation. I spoke to his gun barrel finisher who advised transferring to [facility]. Patient accepted to [facility]. Room assignment completed. We contacted local ambulance service who declined. They felt the need for transfer was not necessary. We discussed the ambulance service declined to transfer patient with family. Patient's states that she will drive patient to [facility] herself. Transfer forms completed. They agree to drive straight to [facility] as [facility] is currently expecting them. Portions of this note were created with voice recognition technology. There may be grammatical, spelling, punctuation or sound alike errors Complexity problem addressed is moderate acute complicated No critical care time Complexity of data reviewed and analyzed is extensive. Test ordered test reviewed. Results analyzed and correlated clinically with history and physical examination. Management discussed with patient's gun barrel finisher as well as receiving hospitalist at [facility]. Risk of complication and or risk morbidity/mortality of patient management is high. Patient requires hospitalization. Patient will be transferred for higher level of care Vital stable. Time spent to arrange transfer is approximately 20 minutes. Plan of care established for shared decision making. No social determinants of health present impede follow-up. Portions of this note were created with voice recognition technology. There may be grammatical, spelling, punctuation or sound alike errors Counseled pt/family regarding: lab results, diagnosis - Departure Departure Disposition: Transfer (They are transferring via private vehicle) Clinical Impression: Symptomatic hyponatremia Condition: Stable Critical Care Time: No Referrals: ROMY LOPEZ MD [Primary Care Provider] - Follow up/PCP as directed Additional Instructions: Discharge/Care Plan ARIN BONDS was seen on 05/03/23 in the Emergency Room. The patient was counseled regarding Diagnosis,Lab results, Imaging studies, need for follow up and when to return to the Emergency Room. Prescriptions given: Discharge Note I have spoken with the patient and/or caregivers. I have explained the patient's condition, diagnosis and treatment plan based on the information available to me at this time. I have answered the patient's and/or caregiver's questions and addressed any concerns. The patient and/or caregivers have as good understanding of the patient's diagnosis, condition and treatment plan as can be expected at this point. The vital signs have been stable. The patient's condition is stable and appropriate for discharge from the emergency department. The patient will pursue further outpatient evaluation with the primary care physician or other designated or consulting physician as outlined in the discharge instructions. The patient and/or caregivers are agreeable to this plan of care and follow-up instructions have been explained in detail. The patient an d/or caregivers have received these instruction. The patient/and or caregivers are aware that any significant change in condition or worsening of symptoms should prompt an immediate return to this or the closest emergency department or call 911.
[2023-05-03] MEDS ORDERED: Sodium Chloride 0.9% 1000 ML 1,000 ML IV SCH (14:30)
[2023-05-03] MEDS ORDERED: Sodium Chloride 0.9% 1000 ML 1,000 ML ONE (15:03)
[2023-05-03 18:40] VITALS: BP 134/86; PULSE 102; RESP 17
[2023-05-03 18:51] VITALS: O2SAT 98
== END 2023-05-03 18:54 | disposition short-term general hospital (02) ==
LOC: ED 12:30
DX: E87.1 Hypo-osmolality and hyponatremia (principal); I10 Essential (primary) hypertension; Z79.899 Other long term (current) drug therapy
CPT/HCPCS: 36415; 80053; 85025; 99284

== ENCOUNTER 2023-05-30 14:07 | Emergency (ER) | payer BC ==
[2023-05-30 14:27] VITALS: TEMP 98.6
[2023-05-30 15:17] LABS: BASOPHIL % 0.9 % (0.0-0.4); Basophil (Absolute #) 0.06 x10^3/uL (0-0.4); Eosinophil % 2.9 % (0.00-5.0); Eosinophil (Absolute #) 0.19 x10^3/uL (0-0.5); Hematocrit 39.2 % (42-50); Hemoglobin 13.5 g/dL (12.5-18.0); IMMATURE GRAN # 0.03 x10^3u/L (0.00-0.03); IMMATURE GRAN % 0.5 % (0.00-0.4); Lymphocyte (Absolute #) 0.89 x10^3/uL (1.0-4.6); Lymphocytes % 13.4 % (24.0-44.0); Mean Cell Volume 97.3 fL (78-100); Mean Corpuscular Hemoglobin 33.5 pg (26-32); Mean Corpuscular Hgb Concent. 34.4 g/dL (32-36); Mean Platelet Volume 9.3 fL (7.5-11.0); Monocyte (Absolute #) 0.86 x10^3/uL (0.0-1.3); Neutrophil % 69.3 % (36.0-66.0); Platelet Count 402 x10^3/uL (150-450); Red Blood Count 4.03 x10^6/uL (4.1-5.6); Red Cell Distribution Width 13.4 % (11.5-14.0); White Blood Count 6.6 x10^3/uL (4.0-10.5)
[2023-05-30 15:35] LABS: BILIRUBIN,TOTAL 0.8 mg/dL (0.2-1.3); Creatinine 1 0.53 mg/dL (0.66-1.25); EST GLOMERULAR FILTRATION RATE 111.9 ML/MIN; MAGNESIUM 1.9 mg/dL (1.6-2.3); Potassium 3.7 mmol/L (3.5-5.1); Total Protein 8.9 g/dL (6.3-8.2)
[2023-05-30] MEDS ORDERED: Sodium Chloride 0.9% 1000 ML 1,000 ML ONE ×2 (15:46→17:02)
[2023-05-30] MEDS: Sodium Chloride 0.9% 1000 ML 1,000 ML IV STA ×2 (15:48→17:08)
[2023-05-30 16:06] LABS: Appearance Clear (Clear); Bacteria None Seen /HPF (None Seen); Bilirubin Negative (Negative); Blood Negative (Negative); Epithelial Cells None Seen /HPF (None Seen); Glucose, Urine Negative (Negative); Hyaline Casts NONE SEEN /LPF (0-2); Ketones Trace (Negative); Leukocyte Esterase Negative (Negative); Nitrite Negative (Negative); Protein,Urine Dip Negative (Negative); RBC 0-2 /HPF (0-5); Specific Gravity 1.015 (1.005-1.030); Urobilinogen 0.2 mg/dL (0.2); WBC 0-2 /HPF (0-5)
[2023-05-30 16:20] LABS: ADD URINE CULTURE? NO (NO)
[2023-05-30 17:06] VITALS: O2SAT 95
[2023-05-30 17:35] LABS: ANION GAP 11.6 MEQ/L (5-15); Calcium 9.6 mg/dL (8.4-10.2); Creatinine 1 0.49 mg/dL (0.66-1.25); EST GLOMERULAR FILTRATION RATE 114.6 ML/MIN; Potassium 4.1 mmol/L (3.5-5.1)
[2023-05-30 17:52] VITALS: BP 155/94; PULSE 79; RESP 14
--- NOTE | 2023-05-30 18:03 | ERPHSYRPT ---
- History of Present Illness Time Seen by Provider: 05/30/23 14:30 Source: patient Exam Limitations: no limitations Patient Subjective Stated Complaint: C/O low sodium level of 125 on 05/28/23 and states that today he is a bit confused and off balance. Patient states that he has battled this issue before and is afraid that his sodium is now even lower. Triage Nursing Assessment: Patient ambulated back to ER. No SOB. Trach in place. Face is a bit flushed. RICHARDS WNL. Alert and oriented at this time. Physician History: Patient is a 62-year-old white male who has longstanding recurrent hyponatremia. He has malignancy and he has other issues that could explain the recurrence of the hyponatremia but to this point he has no definite answers. He found his blood sugar to be 125 at the last testing and that is the area in which Dr. Lazcano likes to use IV fluids. He noticed the onset of his symptoms which are typical with his hyponatremia of leg pain and some confusion. Timing/Duration: today Severity: moderate Allergies/Adverse Reactions: multivitamin with minerals [From Centrum Silver] Allergy (Verified 05/30/23 14:20) rosuvastatin calcium [From Crestor] Allergy (Verified 05/30/23 14:20) Home Medications: ALPRAZolam [Xanax 0.5 mg] 1 tab PO BID 10/03/14 [History] Albuterol 2.5 mg/3 ml Neb [Proventil 2.5 mg/3 ml Neb] 2.5 mg IH Q4HPRN PRN 12/01/18 [History] Atorvastatin Calcium [Lipitor] 10 mg PO HS 12/01/18 [History] Thiamine HCl 100 mg [Vitamin B-1 100 mg] 100 mg PO DAILY 12/01/18 [Hi story] Losartan Potassium 50 mg [Cozaar 50 MG] 100 mg DAILY 12/11/20 [History] Ascorbic Acid 500 mg [Vitamin C 500 MG] 500 mg PO BID 10/22/21 [History] Phenylephrine HCl [4 Way] 1 spray IH UD PRN 10/22/21 [History] Amlodipine Besylate 5 mg [Norvasc 5 mg] 1 tab PO DAILY 05/30/23 [History] Cholecalciferol (Vitamin D3) [Vitamin D3] 1 cap PO DAILY 05/30/23 [History] Metoprolol Tartrate 25 mg [Lopressor 25MG Tab] 1 tab PO BID 05/30/23 [History] Urea [Ure-Na] 1 pack PO BID 05/30/23 [History] Hx Tetanus, Diphtheria Vaccination/Date Given: Yes Hx Influenza Vaccination/Date Given: Yes Hx Pneumococcal Vaccination/Date Given: Yes Immunizations Up to Date: Yes Travel Risk - International Travel Have you traveled outside of the country in past 3 weeks: No - Coronavirus Screening Are you exhibiting any of the following symptoms?: No Close contact with a COVID-19 positive Pt in past 14-21 Days: No - Vaccine Status Have you recieved a Covid-19 vaccination: Yes Rib Cutter: Unknown - Vaccination Dates Dates if Unknown: na - Review of Systems Constitutional: No Fever, No Chills Eyes: No Symptoms Ears, Nose, & Throat: No Symptoms Respiratory: No Cough, No Dyspnea Cardiac: No Chest Pain, No Edema, No Syncope Abdominal/Gastrointestinal: No Abdominal Pain, No Nausea, No Vomiting, No Diarrhea Genitourinary Symptoms: No Dysuria Musculoskeletal: No Back Pain, No Neck Pain Skin: No Rash Neurological: No Dizziness, No Focal Weakness, No Sensory Changes Psychological: No Symptoms Endocrine: No Symptoms All Other Systems: Reviewed and Negative - Past Medical History Pertinent Past Medical History: Yes Neurological History: No Pertinent History ENT History: Cataracts Cardiac History: Hypertension, Other Respiratory History: COPD, Other Endocrine Medical History: No Pertinent History Musculoskeletal History: Arthritis, Osteoarthritis GI Medical History: Diverticulosis, Hernia History: No Pertinent History Psycho-Social History: Anxiety Male Reproductive Disorders: No Pertinent History Other Medical History: sinus issues, (hole in sinus), 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 . - Past Surgical History Past Surgical History: Yes Neuro Surgical History: No Pertinent History Cardiac: No Pertinent History Respiratory: Lobectomy Gastrointestinal: Hernia Repair, Other Genitourinary: No Pertinent History Musculoskeletal: No Pertinent History Male Surgical History: Vasectomy Other Surgical History: leg stitched after cut with circular saw, right lung- middle lobe resected 2018, feeding tube may 2018 (now removed), power port left chest (now removed), - Social History Smoking Status: Former smoker How long have you smoked: 30 Exposure to second hand smoke: No Drug Use: none Patient Lives Alone: No Significant Family History: no pertinent family hx - Nursing Vital Signs Nursing Vital Signs: Initial Vital Signs Temperature 98.6 F 05/30/23 14:20 Pulse Rate 71 05/30/23 14:20 Respiratory Rate 20 05/30/23 14:20 Blood Pressure 170/95 05/30/23 14:20 O2 Sat by Pulse Oximetry 97 05/30/23 14:20 Pain Scale Pain Intensity 0 - Physical Exam General Appearance: no apparent distress, alert Eye Exam: PERRL/EOMI, eyes nml inspection Ears, Nose, Throat Exam: normal ENT inspection, TMs normal, pharynx normal, moist mucous membranes Neck Exam: normal inspection, non-tender, supple, full range of motion, other (Tracheostomy) Respiratory Exam: normal breath sounds, lungs clear, No respiratory distress Cardiovascular Exam: regular rate/rhythm, normal heart sounds, normal peripheral pulses Gastrointestinal/Abdomen Exam: soft, normal bowel sounds, No tenderness, No mass Back Exam: normal inspection, normal range of motion, No CVA tenderness, No vertebral tenderness Extremity Exam: normal inspection, normal range of motion, pelvis stable Neurologic Exam: alert, oriented x 3, cooperative, normal mood/affect, nml cerebellar function, nml station & gait, sensation nml, No motor deficits Skin Exam: normal color, warm, dry, No rash Lymphatic Exam: No adenopathy SpO2 Interpretation: normal SpO2: 95 O2 Delivery: Room Air - Course Nursing assessment & vital signs reviewed: Yes Ordered Tests: Active Orders 24 hr Category Date Time Status BMP Stat Lab 05/30/23 17:15 Completed CBC W DIFF Stat Lab 05/30/23 15:00 Completed CMP Stat Lab 05/30/23 15:00 Completed MAGNESIUM Stat Lab 05/30/23 15:00 Completed UA W/RFX UR CULTURE Stat Lab 05/30/23 15:19 Completed Medication Summary Generic Name Dose Route Start Last Admin Trade Name Freq PRN Reason Stop Dose Admin Sodium Chloride 1,000 mls @ 999 mls/hr 05/30/23 17:02 05/30/23 17:08 Sodium Chloride 0.9% 1000 Ml IV 05/30/23 18:02 999 mls/hr .Q1H1M STA Administration Discontinued Medications Generic Name Dose Route Start Last Admin Trade Name Aleksander PRN Reason Stop Dose Admin Sodium Chloride 1,000 mls @ 999 mls/hr 05/30/23 15:43 05/30/23 17:07 Sodium Chloride 0.9% 1000 Ml IV 05/30/23 16:43 Infused .Q1H1M STA Infusion Sodium Chloride Confirm 05/30/23 15:46 Sodium Chloride 0.9% 1000 Ml Administered 05/30/23 15:47 Dose 1,000 mls @ ud .ROUTE .STK-MED ONE Sodium Chloride Confirm 05/30/23 17:02 Sodium Chloride 0.9% 1000 Ml Administered 05/30/23 17:03 Dose 1,000 mls @ ud .ROUTE .STK-MED ONE Lab/Rad Data: Laboratory Result Diagrams 05/30/23 15:00 05/30/23 17:15 Laboratory Results 05/30/23 05/30/23 05/30/23 Range/Units 17:15 15:19 15:00 WBC (4.0-10.5) x10^3/uL RBC (4.1-5.6) x10^6/uL Hgb (12.5-18.0) g/dL Hct (42-50) % MCV (78-100) fL MCH (26-32) pg MCHC (32-36) g/dL RDW (11.5-14.0) % Plt Count (150-450) x10^3/uL MPV (7.5-11.0) fL Gran % (36.0-66.0) % Immature Gran % (Auto) (0.00-0.4) % Nucleat RBC Rel Count (0.00-0.1) % Eos # (Auto) (0-0.5) x10^3/uL Immature Gran # (Auto) (0.00-0.03) x10^3u/L Absolute Lymphs (auto) (1.0-4.6) x10^3/uL Absolute Monos (auto) (0.0-1.3) x10^3/uL Absolute Nucleated RBC (0.00-0.01) x10^3u/L Lymphocytes % (24.0-44.0) % Monocytes % (0.0-12.0) % Eosinophils % (0.00-5.0) % Basophils % (0.0-0.4) % Absolute Granulocytes (1.4-6.9) x10^3/uL Basophils # (0-0.4) x10^3/uL Sodium 130 L 128 L (137-145) mmol/L Potassium 4.1 3.7 (3.5-5.1) mmol/L Chloride 95 L 91 L (98-107) mmol/L Carbon Dioxide 27 30 (22-30) mmol/L Anion Gap 11.6 10.0 (5-15) MEQ/L BUN 20 26 H (9-20) mg/dL Creatinine 0.49 L 0.53 L (0.66-1.25) mg/dL Estimated GFR 114.6 111.9 ML/MIN Glucose 103 115 H (74-106) mg/dL Calcium 9.6 10.0 (8.4-10.2) mg/dL Magnesium 1.9 (1.6-2.3) mg/dL Total Bilirubin 0.80 (0.2-1.3) mg/dL AST 31 (17-59) U/L ALT 18 (0-50) U/L Alkaline Phosphatase 52 (38-126) U/L Serum Total Protein 8.9 H (6.3-8.2) g/dL Albumin 5.0 (3.5-5.0) g/dL Urine Color Yellow (Yellow) Urine Appearance Clear (Clear) Urine pH 7.0 (4.6-8.0) Ur Specific Hughes 1.015 (1.005-1.030) Urine Protein Negative (Negative) Urine Glucose (UA) Negative (Negative) mg/dL Urine Ketones Trace A (Negative) Urine Blood Negative (Negative) Urine Nitrite Negative (Negative) Urine Bilirubin Negative (Negative) Urine Urobilinogen 0.2 (0.2) mg/dL Ur Leukocyte Esterase Negative (Negative) U Hyaline Cast (Auto) NONE SEEN (0-2) /LPF Urine Microscopic RBC 0-2 (0-5) /HPF Urine Microscopic WBC 0-2 (0-5) /HPF Ur Epithelial Cells None Seen (None Seen) /HPF Urine Bacteria None Seen (None Seen) /HPF Urine Culture Reflexed NO (NO) 05/30/23 Range/Units 15:00 WBC 6.6 (4.0-10.5) x10^3/uL RBC 4.03 L (4.1-5.6) x10^6/uL Hgb 13.5 (12.5-18.0) g/dL Hct 39.2 L (42-50) % MCV 97.3 (78-100) fL MCH 33.5 H (26-32) pg MCHC 34.4 (32-36) g/dL RDW 13.4 (11.5-14.0) % Plt Count 402 (150-450) x10^3/uL MPV 9.3 (7.5-11.0) fL Gran % 69.3 H (36.0-66.0) % Immature Gran % (Auto) 0.5 H (0.00-0.4) % Nucleat RBC Rel Count 0.0 (0.00-0.1) % Eos # (Auto) 0.19 (0-0.5) x10^3/uL Immature Gran # (Auto) 0.03 (0.00-0.03) x10^3u/L Absolute Lymphs (auto) 0.89 L (1.0-4.6) x10^3/uL Absolute Monos (auto) 0.86 (0.0-1.3) x10^3/uL Absolute Nucleated RBC 0.00 (0.00-0.01) x10^3u/L Lymphocytes % 13.4 L (24.0-44.0) % Monocytes % 13.0 H (0.0-12.0) % Eosinophils % 2.9 (0.00-5.0) % Basophils % 0.9 (0.0-0.4) % Absolute Granulocytes 4.60 (1.4-6.9) x10^3/uL Basophils # 0.06 (0-0.4) x10^3/uL Sodium (137-145) mmol/L Potassium (3.5-5.1) mmol/L Chloride (98-107) mmol/L Carbon Dioxide (22-30) mmol/L Anion Gap (5-15) MEQ/L BUN (9-20) mg/dL Creatinine (0.66-1.25) mg/dL Estimated GFR ML/MIN Glucose (74-106) mg/dL Calcium (8.4-10.2) mg/dL Magnesium (1.6-2.3) mg/dL Total Bilirubin (0.2-1.3) mg/dL AST (17-59) U/L ALT (0-50) U/L Alkaline Phosphatase (38-126) U/L Serum Total Protein (6.3-8.2) g/dL Albumin (3.5-5.0) g/dL Urine Color (Yellow) Urine Appearance (Clear) Urine pH (4.6-8.0) Ur Specific Hughes (1.005-1.030) Urine Protein (Negative) Urine Glucose (UA) (Negative) mg/dL Urine Ketones (Negative) Urine Blood (Negative) Urine Nitrite (Negative) Urine Bilirubin (Negative) Urine Urobilinogen (0.2) mg/dL Ur Leukocyte Esterase (Negative) U Hyaline Cast (Auto) (0-2) /LPF Urine Microscopic RBC (0-5) /HPF Urine Microscopic WBC (0-5) /HPF Ur Epithelial Cells (None Seen) /HPF Urine Bacteria (None Seen) /HPF Urine Culture Reflexed (NO) - Progress Progress: improved Medical Desision Making - Independent Historian Additional History obtained from: Spouse - Diagnostic Testing Diagnostic test were ordered, analyzed, and reviewed by me: Yes - Departure Departure Disposition: Home Clinical Impression: Hyponatremia Condition: Stable Critical Care Time: No Referrals: ROMY LOPEZ MD [Primary Care Provider] - Follow up/PCP as directed Instructions: Hyponatremia (DC)
== END 2023-05-30 18:15 | disposition home or self-care (01) ==
LOC: ED 14:07
DX: E87.1 Hypo-osmolality and hyponatremia (principal); M79.606 Pain in leg, unspecified; R41.0 Disorientation, unspecified; I10 Essential (primary) hypertension; Z79.899 Other long term (current) drug therapy
CPT/HCPCS: 36000; 36415; 80048; 80053; 81001; 83735; 85025; 99284